=== PATIENT | male | born 1970 | race Caucasian/White ===

== ENCOUNTER 2018-09-17 21:57 | Emergency (ER) | payer BC, OTHER ==
[~2018-09-17] VITALS: Ht 185.4 cm; Wt 124.7 kg
[~2018-09-17 21:57] MED LIST: LISINOPRIL10 MG PO
[2018-09-17] MEDS ORDERED: ORPHENADRINE CITRATE 30 MG/ML VIAL IM ONE (22:15)
[2018-09-17] MEDS ORDERED: KETOROLAC TROMETHAMINE 60 MG/2 ML VIAL IM ONE (22:15)
[2018-09-17] MEDS ORDERED: DIAZEPAM 5 MG TAB PO ONE (22:15)
--- NOTE | 2018-09-17 22:29 | NUR ---
KATHY NAIK CAME FOR PT FOR DIAGNOSTICS, PT STATES HE WANTS TO WAIT A FEW MINUTES FOR MEDICATIONS TO "KICK IN" BEFORE GOING. MD WARD
--- NOTE | 2018-09-17 23:51 | Diagnostic Imaging Report ---
CHEST SINGLE (PORTABLE), 09/17/2018 10:12 PM Technique: CHEST SINGLE (PORTABLE) Comparison: 09/01/2014 Clinical history: Cough Findings: See Impression Impression: Significantly limited by portable lordotic technique and soft tissue attenuation. Recommend follow-up upright PA and lateral. Signed by: Dr Aleta Dugan MD on 09/17/2018 11:48 PM
--- NOTE | 2018-09-17 23:57 | Diagnostic Imaging Report ---
History: Back pain, patient states he coughed and heard pop in the back followed by severe back pain. Comparison studies: None Technique: Axial were obtained without IV contrast through the thoracic region. Coronal and sagittal images reconstructed from the axial data. Dose modulation, iterative reconstruction, and/or weight based adjustment of the mA/kV was utilized to reduce the radiation dose to as low as reasonably achievable. Intravenous contrast: None Findings: Alignment: Normal kyphosis. No scoliosis. Soft tissues: No abnormalities.. Paraspinal muscles: Unremarkable Spinal cord: Can not be evaluated. Vertebrae: Age indeterminate inferior endplate compression and anterior wedging deformity at level T8 with approximately 15% loss of vertebral body height. No fractures, infection or neoplasm. Degenerative changes: Multilevel Schmorl's node in mid and lower thoracic spine. No significant canal or foraminal stenosis. IMPRESSION: 1. Age indeterminate mild inferior endplate compression and anterior wedging deformity at level T8. 2. Multilevel Schmorl's node in mid and lower thoracic spine. 3. Ligament, spinal cord and or vascular abnormalities cannot be excluded on the basis of this examination. Signed by: Dr. Chrystal Handley M.D. on 09/17/2018 11:53 PM
--- NOTE | 2018-09-18 00:05 | Diagnostic Imaging Report ---
History: Back pain, patient states he coughed and heard pop in the back followed by severe back pain. Comparison studies: None Technique: Axial images were obtained through the lumbar spine from T12-S1. Coronal and sagittal images reconstructed from the axial data. Dose modulation, iterative reconstruction, and/or weight based adjustment of the mA/kV was utilized to reduce the radiation dose to as low as reasonably achievable. Intravenous contrast: None Findings: The usual 5 non-rib bearing lumbar vertebral bodies are present. Alignment: Normal lordosis. No scoliosis. Soft tissues: No abnormalities. Paraspinal muscles: Unremarkable. Sacroiliac joints: Mild bilateral degenerative changes with vacuum phenomenon Vertebrae: No fractures, infection or neoplasm. Degenerative changes: L1-L2: Mild degenerative disc disease and endplate sclerosis. No canal or foraminal stenosis. L2-L3: Disc bulge asymmetric to left without significant canal stenosis. Mild bilateral foraminal stenosis L3-L4: Disc bulge without canal stenosis. Mild left foraminal stenosis. L4-L5: Disc bulge without significant canal stenosis. Mild bilateral facet arthrosis. Mild bilateral foraminal stenosis. L5-S1: Mild degenerative disc disease with endplate sclerosis and vacuum phenomena and. Disc bulge without canal stenosis. Mild right and severe left facet arthrosis. Mild right and severe left foraminal stenosis. IMPRESSION: 1. No acute lumbar spine fracture or dislocation. 2. Lumbar spondylosis as detailed above without significant canal stenosis. Multilevel foraminal stenosis, particularly mild bilateral at L2-L3, L4-L5, mild left at L3-L4, mild right and severe left at L5-S1. 3. Ligament, spinal cord and or vascular abnormalities cannot be excluded on the basis of this examination. Signed by: Dr. Chrystal Handley M.D. on 09/18/2018 12:01 AM
--- NOTE | 2018-09-18 01:25 | NUR ---
DC'D HOME WITH FAMILY. PT OFFERED WHEELCHAIR, REFUSED, STATES "I'VE GOTTA WALK WHEN I GET HOME, SO I'M GONNA WALK OUTTA HERE." WALKED WITH PATIENT TO EXIT, TOLERATED AMBULATING WELL. AWAKE ALERT SKIN W/D RESP NONLAB. NAD NOTED.
== END 2018-09-18 01:26 | disposition home or self-care (01) ==
LOC: ER 21:57
DX: M54.6 Pain in thoracic spine (principal); S22.060A Wedge compression fracture of T7-T8 vertebra, initial encounter for closed fracture; M54.5 Low back pain; S39.012A Strain of muscle, fascia and tendon of lower back, initial encounter
CPT/HCPCS: 71045; 72128; 72131; 99284; J1885; J2360

== ENCOUNTER 2019-05-23 15:26 | Observation (INO) | payer OTHER ==
[~2019-05-23] VITALS: Ht 185.4 cm; Wt 127.0 kg
--- OUTSIDE RECORDS SUMMARY | 2019-05-23 16:11 | XMS REPORT ---
Author [facility] Address Unknown Phone Unavailable Care Team Providers Care Word Processing Operator Name Role Phone Renetta BOCANEGRA Unavailable Unavailable Problems This patient has no known problems. Allergies, Adverse Reactions, Alerts This patient has no known allergies or adverse reactions. Medications This patient has no known medications. Results Test Description Test Time Test Comments Text Results Atomic Results Result Comments CT LUMBAR SPINE WO 2018-09-17 23:54:00 [place] [address] Patient Name: YOLA LYNN MR #: [id number] : 1970 Age/Sex: 48/M Req #: [id number] Adm Physician: Ordered by: CARMEN BOCANEGRA MD Report #: [id number] Location: ER Room/Bed: Procedure: [id number] CT/CT LUMBAR SPINE WO Exam Date: 09/17/18 Exam Time: 2300 REPORT STATUS: Signed History: Back pain, patient states he coughed and heard pop in the back followed by severe back pain. Comparison studies: None Technique: Axial images were obtained through the lumbar spine from T12-S1. Coronal and sagittal images reconstructed from the axial data. Dose modulation, iterative reconstruction, and/or weight based adjustment of the mA/kV was utilized to reduce the radiation dose to as low as reasonably achievable. Intravenous contrast: None Findings: The usual 5 non-rib bearing lumbar vertebral bodies are present. Alignment: Normal lordosis. No scoliosis. Soft tissues: No abnormalities. Paraspinal muscles: Unremarkable. Sacroiliac joints: Mild bilateral degenerative changes with vacuum phenomenon Vertebrae: No fractures, infection or neoplasm. Degenerative changes: L1-L2: Mild degenerative disc disease and endplate sclerosis. No canal or foraminal stenosis. L2-L3: Disc bulge asymmetric to left without significant canal stenosis. Mild bilateral foraminal stenosis L3- L4: Disc bulge without canal stenosis. Mild left foraminal stenosis. L4-L5: Disc bulge without significant canal stenosis. Mild bilateral facet arthrosis. Mild bilateral foraminal stenosis. L5-S1: Mild degenerative disc disease with endplate sclerosis and vacuum phenomena and. Disc bulge without canal stenosis. Mild right and severe left facet arthrosis. Mild r ight and severe left foraminal stenosis. IMPRESSION: 1. No acute lumbar spine fracture or dislocation. 2. Lumbar spondylosis as detailed above without significant canal stenosis. Multilevel foraminal stenosis, particularly mild bilateral at L2-L3, L4-L5, mild left at L3-L4, mild right and severe left at L5-S1. 3. Ligament, spinal cord and or vascular abnormalities cannot be excluded on the basis of this examination. Signed by: Dr. Chrystal Handley M.D. on 09/18/2018 12:01 AM Dictated By: CHRYSTAL HANDLEY MD 47 Transcribed By: ROBERT on 09/18/182347 COPY TO: CARMEN BOCANEGRA MD [facility] SINGLE (PORTABLE) 2018-09-17 23:46:00 [place] [address] Patient Name: YOLA LYNN MR #: [id number] : 1970 Age/Sex: 48/M Req #: [id number] Adm Physician: Ordered by: CARMEN BOCANEGRA MD Report #: [id number] Location: ER Room/Bed: Procedure: [id number] DX/CHEST SINGLE (PORTABLE) Exam Date: 09/17/18 Exam Time: 2335 REPORT STATUS: Signed CHEST SINGLE (PORTABLE), 09/17/2018 10:12 PM [place] hnique: CHEST SINGLE (PORTABLE) Comparison: 09/01/2014 Clinical history: Cough Findings: See Impression Impression: Significantly limited by portable lordotic technique and soft tissue attenuation. Recommend follow- up upright PA and lateral. Signed by: Dr Andrew Dugan MD on 09/17/2018 11:48 PM Dictated By: ANDREW DUGAN MD 47 Transcribed By: ROBERT on 09/17/182347 COPY TO: CARMEN BOCANEGRA MD CT THORACIC SPINE WO 2018-09-17 23:42:00 [place] [address] Patient Name: YOLA LYNN MR #: [id number] : 1970 Age/Sex: 48/M Req #: [id number] Adm Physician: Ordered by: CARMEN BOCANEGRA MD Report #: [id number] Location: ER Room/Bed: Procedure: [id number] CT/CT THORACIC SPINE WO Exam Date: 09/17/18 Exam Time: 2300 REPORT STATUS: Signed History: Back pain, patient states he coughed and heard pop in the back followed by severe back pain. Comparison studies: None Technique: Axial were obtained without IV contrast through the thoracic region. Coronal and sagittal images reconstructed from the axial data. Dose modulation, iterative reconstruction, and/or weight based adjustment of the mA/kV was utilized to reduce the radiation dose to as low as reasonably achievable. Intravenous contrast: None Findings: Alignment: Normal kyphosis. No scoliosis. Soft tissues: No abnormalities.. Paraspinal muscles: Unremarkable Spinal cord: Can not be evaluated. Vertebrae: Age indeterminate inferior endplate compression and anterior wedging deformity at level T8 with approximately 15% loss of vertebral body height. No fractures, infection or neoplasm. Degenerative changes: Multilevel Schmorl's node in mid and lower thoracic spine. No significant canal or foraminal stenosis. IMPRESSION: 1. Age indeterminate mild inferior endplate compression and anterior wedging deformity at level T8. 2. Multilevel Schmorl's node in mid and lower thoracic spine. 3. Ligament, spinal cord and or vascular abnormalities cannot be excluded on the basis of this examination. Signed by: Dr. Chrystal Handley M.D. on 09/17/2018 11:53 PM Dictated By: CHRYSTAL HANDLEY MD 2 353 Transcribed By: ROBERT on 09/17/18 [id number] COPY TO: CARMEN BOCANEGRA MD
[2019-05-23] MEDS ORDERED: DEXTROSE 50% SYRINGE 50 ML IV PRN (16:30)
[2019-05-23] MEDS ORDERED: NICOTINE 21 MG/EA PATCH TOP SCH (16:45)
[2019-05-23 16:57] VITALS: BP 131/78
[2019-05-23 17:02] VITALS: BP 131/78
--- NOTE | 2019-05-23 17:08 | NUR ---
patient received awake and alert. see admit assess. Dr Galvan to deride left index finger in am. vitals stable with no distress.
[2019-05-23 17:24] LABS: BASOPHILS # (AUTO) 0.1 (0.0-0.1); BASOPHILS % 0.8 % (0.0-1.0); EOSINOPHILS # (AUTO) 1.5 (0.0-0.4); EOSINOPHILS % 13.8 % (0.0-6.0); HEMATOCRIT 38.6 % (38.2-49.6); HEMOGLOBIN 12.7 g/dL (14.0-18.0); LYMPHOCYTES # (AUTO) 1.9 (1.0-3.2); LYMPHOCYTES % 16.8 % (18.0-39.1); MEAN CORPUSCULAR HGB CONC 32.9 g/dL (31-35); MEAN CORPUSCULAR VOLUME 94.1 fL (81-99); MONOCYTES # (AUTO) 0.8 (0.2-0.8); NEUTROPHILS # (AUTO) 6.8 (2.1-6.9); NEUTROPHILS % 61.3 % (38.7-80.0); PLATELET COUNT 216 x10e3/uL (140-360); RED CELL DISTRIBUTION WIDTH 12.6 % (11.7-14.4)
[2019-05-23 17:41] LABS: ALANINE AMINOTRANSFERASE 32 IU/L (0-55); ALBUMIN 3.4 g/dL (3.5-5.0); ALBUMIN/GLOBULIN RATIO 0.9 (0.8-2.0); ALKALINE PHOSPHATASE 64 IU/L (40-150); ANION GAP 12.1 mmol/L (8-16); BLOOD UREA NITROGEN 14 mg/dL (7-26); BUN/CREATININE RATIO 13 (6-25); CALCIUM 9.2 mg/dL (8.4-10.2); CARBON DIOXIDE 27 mmol/L (22-29); CHLORIDE 100 mmol/L (98-107); CREATININE, SERUM 1.04 mg/dL (0.72-1.25); EST GLOMERULAR FILTRATION RATE > 60 ML/MIN (60-); GLUCOSE 153 mg/dL (74-118); POTASSIUM 4.1 mmol/L (3.5-5.1); SODIUM 135 mmol/L (136-145)
[2019-05-23] MEDS: METFORMIN HCL 500 MG TAB PO SCH (18:12)
[2019-05-23] MEDS: CLINDAMYCIN 600MG / 50ML 50 ML IV SCH (18:12)
--- NOTE | 2019-05-23 18:22 | History and Physical ---
CHIEF COMPLAINT: "My finger wound is worsening." HISTORY OF PRESENT ILLNESS: This is a 49-year-old white man, who was diagnosed 4 weeks ago with an ulcerated wound on the palmar aspect of his left index finger. The patient was prescribed a 14-day course of oral levofloxacin, which he fully completed. The patient's over last week, the palmar aspect of his left index finger tip has become black. The patient denies fever and chills. 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 The patient states he does keep the wound covered though. The patient states he initially suffered sustained this wound on March 23, 2019, when he injured his left index finger at work with a tungsten probe. REVIEW OF SYSTEMS: GENERAL: No fever or chills. Weight is stable. HEENT: No headaches. No vision changes. CARDIOVASCULAR: No chest pain. No shortness of breath. GI: Nausea, vomiting, or constipation. : No dysuria or hematuria. NEUROMUSCULAR: No limb weakness, but he does have numbness at times in his hands and feet. He states at times he has coldness in the tips of his fingers on his both hands. PAST MEDICAL HISTORY: 1. Type 2 diabetes with neuropathy. 2. Extreme obesity, BMI 40. 3. Hypertensive disease. 4. Sleep apnea. 5. Stage I chronic kidney disease. SURGICAL HISTORY: None. ALLERGIES: NO KNOWN DRUG ALLERGIES. FAMILY HISTORY: Mother has rheumatoid arthritis and father has Parkinson disease. Both parents have hypertension, type 2 diabetes. 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 He currently lives with his girlfriend. The patient smokes tobacco, but denies any alcohol or illicit drug use. HOME MEDICATIONS: 1. Metformin 1000 mg daily. 2. Tizanidine 4 mg once a day as needed for back spasms. 3. Vitamin D3 2000 units daily. 4. Vitamin B12 1000 mcg daily. 5. Lisinopril 20 mg daily. 6. Ibuprofen 200 mg b.i.d. p.r.n. PHYSICAL EXAMINATION: GENERAL: He is awake, alert, and fully oriented. He is very anxious, but consolable. His girlfriend is at bedside. VITAL SIGNS: Blood pressure is 158/90, pulse 88, respiratory rate 16, oxygen saturation is 90% on room air, temperature 98.2, height 6 feet 1 inch, weight 301 pounds, BMI 40. Nonfasting glucose 117 mg/dL. INTEGUMENT: Skin is warm and dry. No pallor, jaundice, or diaphoresis. HEENT: Anicteric sclerae. Moist mucous membranes. NECK: Supple. CARDIOVASCULAR: Distant heart sounds. Tachycardic rate and rhythm. There is S4 gallop. LUNGS: No rales, no rhonchi. ABDOMEN: Obese, benign. EXTREMITIES: The patient has a black eschar covered wound on the palmar aspect of his left index finger tip. There is some surrounding erythema, but no drainage. No streaking is appreciated superiorly from this left index finger wound. NEUROLOGIC: He has decreased pinprick sensation to plantar aspects of feet. DIAGNOSES: 1. Dry gangrenous wound (distal aspect of left trevino index finger) with surrounding cellulitis. 2. Buerger disease (Thromboangiitis obliterans). 3. Type 2 diabetes with neuropathy. 4. Dyslipidemia. 5. Hypertensive heart disease. 6. Extreme obesity, BMI 40. 7. Tobacco abuse. PLAN: 1. Highly recommend tobacco cessation. 2. Inform the patient that he could be experiencing Buerger disease since he is a tobacco smoker and may have peripheral artery disease in the digits of the hands. 3. We will order Humalog insulin sliding scale. 4. Start intravenous ceftriaxone and clindamycin for the patient's dry gangrenous finger wound with surrounding cellulitis. 5. Consult a hand surgeon since this wound needs to be debrided. 6. Continue oral metformin for glucose control. 7. Arterial doppler ultrasound of left upper extremity. 8. Antiplatelet therapy. I spent 50 minutes in the care of the patient. MD DUSTY Alva/CLOVIS /[id number] MTDD
[2019-05-23] MEDS: INSULIN LISPRO 100 UNIT/1 ML 3ML VIAL SQ SCH ×2 (18:25→20:25)
[2019-05-23] MEDS ORDERED: LIDOCAINE HCL 2% LOCAL INJ 5 ML SDV VIAL INJ ONE (19:19)
[2019-05-23] MEDS ORDERED: PROPOFOL IV EMULSION 10 MG/ML 20 ML VIAL ONE (19:19)
[2019-05-23 19:33] VITALS: BP 131/78
[2019-05-23 19:37] LABS: ANISOCYTOSIS SLIGHT; EOSINOPHILS % (MANUAL) 12 % (0-7); LYMPHOCYTES % (MANUAL) 14 % (19-48); MONOCYTES % (MANUAL) 6 % (3.4-9.0); NEUTROPHILS % (MANUAL) 65 % (40-74); PLATELET ESTIMATE ADEQUATE; PLATELET MORPHOLOGY COMMENT NORMAL; RBC MORPHOLOGY COMMENT NORMAL
--- NOTE | 2019-05-23 19:40 | NUR ---
Received report from previous nurse. Call light within reach. Patient in bed. No pain or distress.
--- NOTE | 2019-05-23 19:58 | Diagnostic Imaging Report ---
EXAMINATION: CHEST 2 VIEWS INDICATION: Hypertension ^HTN ^[id number] ^192 COMPARISON: September 17, 2018 FINDINGS: TUBES and LINES: None. LUNGS: Lungs are well inflated. Lungs are clear. There is no evidence of pneumonia or pulmonary edema. PLEURA: No pleural effusion or pneumothorax. HEART AND MEDIASTINUM: The cardiomediastinal silhouette is unremarkable. BONES AND SOFT TISSUES: No acute osseous lesion. Soft tissues are unremarkable. UPPER ABDOMEN: No free air under the diaphragm. IMPRESSION: No acute thoracic abnormality. Signed by: Dr. Nitish Spain M.D. on 05/23/2019 7:39 PM
[2019-05-23] MEDS: CEFTRIAXONE SOD 2 GM/NS 100 ML 100 ML IV SCH (20:05)
[2019-05-23 20:11] VITALS: BP 129/64
[2019-05-23] MEDS ORDERED: SODIUM CHLORIDE 0.9% 250ML 250 ML ONE (20:12)
[2019-05-23 20:49] VITALS: BP 129/64
[2019-05-24 00:04] VITALS: BP 130/73
--- NOTE | 2019-05-24 00:10 | NUR ---
Patient complained of 5 out of 10 pain in his head. Called Dr. Chowdary office and waiting for call back.
[2019-05-24] MEDS: CLINDAMYCIN 600MG / 50ML 50 ML IV SCH ×2 (00:15→05:58)
--- NOTE | 2019-05-24 01:09 | Consultation ---
DATE OF CONSULTATION: 05/23/2019 CONSULT REQUESTED BY: Maurice Chowdary MD. Consult requested to Clive Hubbard MD, Hand Surgery. CHIEF COMPLAINT: Left index finger infection. HISTORY OF PRESENT ILLNESS: The patient is a 49-year-old right-hand dominant male. He was newly diagnosed with adult onset diabetes mellitus. The patient states that approximately one month ago, he sustained an injury and a laceration to the tip of the left index finger. He states that despite using soap and water and bacitracin ointment that the wound has not healed and in fact has gotten significantly worse. He was seen by his PCP today, who noticed that there appears to be a significant amount of devitalized tissue and the presence of soft tissue infection. He was then admitted as a direct admit and consultation is now requested for optimal evaluation and management. PAST MEDICAL HISTORY: Notable for recently diagnosed adult onset diabetes mellitus. PAST SOCIAL HISTORY: Noncontributory. He is a long-time smoker. PHYSICAL EXAMINATION: VITAL SIGNS: He is afebrile. His vital signs were stable. On pertinent physical exam, the left index finger exhibits a full thickness wound extending from the DIP joint flexion crease to the tip of finger. There is devitalized tissue involving the volar aspect of the soft tissues. The middle phalanx is erythematous and blanches consistent with soft tissue cellulitis. There is no pain over the flexor tendon sheath and there is no pain with passive range of motion that would indicate a tenosynovitis. LABORATORY DATA: The white blood cell count is elevated to 12.4. IMPRESSION: Left index finger cellulitis and devitalized tissue. PLAN: The patient will be taken to the OR in the morning. Sharp excisional debridement of all of the devitalized tissues will be performed and that he will be returned to his hospital room for further care and treatment. Thank you for allowing me to participate in the care your patient. Clive Hubbard MD ER/MODL /[id number]
--- NOTE | 2019-05-24 02:30 | NUR ---
Patient still complaining of headache and called Dr. Chowdary office again and still waiting for a call back
[2019-05-24 04:33] VITALS: BP 134/84
[2019-05-24] MEDS ORDERED: MUPIROCIN 2% OINT 22 GM TUBE ONE (06:06)
[2019-05-24] MEDS ORDERED: BACITRACIN 50,000 UNIT VIAL ONE (06:07)
[2019-05-24] MEDS ORDERED: BUPIVACAINE HCL 0.5% INJ 30 ML VIAL INJ ONE (06:07)
--- NOTE | 2019-05-24 06:18 | NUR ---
Dr. Chowdary called back and told him that the patient would like something for their headache. Dr. Chowdary ordered Tylenol 650 mg, q4h prn with sips of water.
[2019-05-24] MEDS: ACETAMINOPHEN 325 MG TAB PO PRN ×2 (06:42→10:39)
[2019-05-24 07:25] VITALS: BP 139/72
--- NOTE | 2019-05-24 07:25 | NUR ---
Gave report to oncoming nurse. Patient in bed. Call light within reach.
[2019-05-24] MEDS: INSULIN LISPRO 100 UNIT/1 ML 3ML VIAL SQ SCH ×2 (07:30→11:30)
[2019-05-24] MEDS: METFORMIN HCL 500 MG TAB PO SCH (08:00)
[2019-05-24 08:32] VITALS: BP 139/72
[2019-05-24] MEDS ORDERED: LIDOCAINE HCL 1% LOCAL INJ 20 ML VIAL ONE (08:33)
--- NOTE | 2019-05-24 08:34 | NUR ---
patient off the unit for procedure, Stable, alert with no distress, 9 am antibiotic sent with patient. Dr Chowdary had rounds
[2019-05-24] MEDS ORDERED: LISINOPRIL 20 MG TAB PO SCH (09:00)
[2019-05-24] MEDS: CEFTRIAXONE SOD 2 GM/NS 100 ML 100 ML IV SCH (09:00)
[2019-05-24 10:19] VITALS: BP 125/53
--- NOTE | 2019-05-24 11:16 | NUR ---
patient c/o pain in his left finger. patient given oral tylenol. No other pain meds ordered. Call placed to get new order
[2019-05-24 11:28] VITALS: BP 191/101
[2019-05-24] MEDS ORDERED: KETOROLAC TROMETHAMINE 30 MG/ML VIAL IV STA (11:40)
--- NOTE | 2019-05-24 13:10 | NUR ---
patient discharged home, left index incision site is dressing intact, not in any distress, patient got lunch tray, refused any insulin, IV canula removed with tip intact, no ss of infiltration. , transported via wheelchair to [facility]
[2019-05-24] MEDS ORDERED: NICOTINE PATCH1 EAC2 TP (13:22)
[2019-05-24] MEDS ORDERED: CLINDAMYCIN HC150 MG PO (13:22)
[2019-05-24] MEDS ORDERED: TYLENOL WITH C1 EACH PO (13:23)
[2019-05-24] MEDS ORDERED: ASPIRIN81 MG PO (13:23)
--- NOTE | 2019-05-24 14:14 | NUR ---
Dictated DC summary: [id number]
--- NOTE | 2019-05-24 15:09 | Discharge Summary ---
ADMITTING DIAGNOSES: 1. Dry gangrenous left index finger wound with surrounding cellulitis. 2. Buerger disease (thromboangiitis obliterans). 3. Type 2 diabetes mellitus with neuropathy. 4. Dyslipidemia. 5. Hypertensive heart disease. 6. Tobacco abuse. DISCHARGE DIAGNOSES: 1. Status post left index finger wound debridement. 2. Buerger disease (thromboangiitis obliterans). 3. Peripheral arterial disease, likely. 4. Hypertensive heart disease. 5. Type 2 diabetes mellitus with neuropathy. 6. Tobacco abuse. HOSPITAL COURSE: This is a 49-year-old white male, who initially admitted to [facility] with a diagnosis of a dry gangrenous wound on the palmar aspect of his left index finger with surrounding cellulitis. He was also diagnosed with Buerger disease (thromboangiitis obliterans). The patient also has type 2 diabetes mellitus with neuropathy as well as hypertensive heart disease. The patient also smokes tobacco heavily. During this hospitalization, the patient was counseled on absolute tobacco cessation. The patient was started on nicotine patch. The patient was also started on intravenous ceftriaxone and clindamycin for his gangrenous left index finger wound with surrounding cellulitis. The patient was seen by hand surgeon during this hospitalization, Dr. Clive Hubbard, who performed wound debridement of the left index finger in the operating room. The patient tolerated the procedure well. During this hospital stay, the patient was diagnosed with Buerger disease (thromboangiitis obliterans). The patient's condition on discharge is stable. DISCHARGE MEDICATIONS: 1. Clindamycin 300 mg daily for 10 days. 2. Tylenol No. 3 one pill every 6 hours p.r.n. pain, total 20 prescribed with one refill. 3. Nicotine patch 21 mg strength, one patch daily. 4. Lisinopril 20 mg daily. 5. Metformin 1000 mg b.i.d. 6. Tizanidine 4 mg once daily as needed for back spasms. 7. Vitamin D3 2000 units daily. 8. Vitamin B12 1000 mcg daily. 9. Aspirin 81 mg daily. FOLLOWUP INSTRUCTIONS: The patient was instructed to follow up with Dr. Hubbard, hand surgeon within a week and with myself, Dr. Chowdary, in two weeks. Maurice E Orahood, MD MEO/CLOVIS /[id number] MTDD
--- NOTE | 2019-05-24 16:59 | Operative Report ---
DATE OF PROCEDURE: 05/24/2019 SURGEON: Clive Hubbard MD PREOPERATIVE DIAGNOSIS: Gangrene, left index finger. POSTOPERATIVE DIAGNOSIS: Gangrene, left index finger. PROCEDURE: Sharp excisional debridement of left index finger. ANESTHESIA: IV sedation/local. HISTORY: The patient is a 49-year-old male, who was admitted last night, who has a history of Buerger's disease and new onset adult onset diabetes mellitus. He has a gangrene of the distal phalanx of the left index finger. Risks, benefits, and alternatives of treatment were discussed with the patient. He is prepared to undergo the procedure as outlined. DESCRIPTION OF PROCEDURE: The patient was marked preoperatively in the holding area, brought to the operating theater, and after the induction of adequate IV sedation, a digital block of 1% xylocaine plain was placed around the base of the left index finger. A total of 5 to 6 mL was used. A time-out was then performed. The finger was prepped and draped in a supine position and sharp excisional debridement of all the devitalized tissues was carried out until the wound bed was noted to have a good punctate bleeding and no further devitalized tissue. Bactroban ointment, Xeroform gauze, and a sterile dressing were applied. The patient was returned to recovery room in satisfactory condition and discharged with a postoperative instruction sheet as well as a followup appointment. Clive Hubbard MD ER/MODL /[id number]
[2019-05-24] MEDS ORDERED: FENTANYL CITRATE/PF 100MCG/2 ML INJ ONE (19:44)
[2019-05-24] MEDS ORDERED: MIDAZOLAM HCL 2 MG/2 ML VIAL ONE (19:44)
== END 2019-05-24 13:52 | disposition home or self-care (01) ==
LOC: IMCU 16:09
PROVIDERS: ADMIT Internal Medicine; ATTEND Internal Medicine
DX: I73.1 Thromboangiitis obliterans [Buerger's disease] (principal); E11.22 Type 2 diabetes mellitus with diabetic chronic kidney disease; E11.69 Type 2 diabetes mellitus with other specified complication; I13.10 Hypertensive heart and chronic kidney disease without heart failure, with stage 1 through stage 4 chronic kidney disease, or unspecified chronic kidney disease; M86.8X4 Other osteomyelitis, hand; N18.1 Chronic kidney disease, stage 1; Z79.4 Long term (current) use of insulin; G47.30 Sleep apnea, unspecified; E66.01 Morbid (severe) obesity due to excess calories; Z68.41 Body mass index [BMI] 40.0-44.9, adult; E11.40 Type 2 diabetes mellitus with diabetic neuropathy, unspecified; Z79.84 Long term (current) use of oral hypoglycemic drugs; E11.52 Type 2 diabetes mellitus with diabetic peripheral angiopathy with gangrene; F17.210 Nicotine dependence, cigarettes, uncomplicated; E78.5 Hyperlipidemia, unspecified; L03.012 Cellulitis of left finger
CPT/HCPCS: 11042; 36415 ×2; 71046; 80053; 82948 ×2; 85025; 93005; G0378 ×2; J0696; J1885; J2001 ×2; J2250; J2704; J3010; J7050

== ENCOUNTER 2019-08-13 13:57 | Inpatient (IN) | payer OTHER ==
[~2019-08-13] VITALS: Ht 185.4 cm; Wt 127.0 kg
[~2019-08-13 13:57] MED LIST changes: +ASPIRIN81 MG PO; +CLINDAMYCIN HC150 MG PO; +NICOTINE PATCH1 EAC2 TP; +TYLENOL WITH C1 EACH PO
[2019-08-13] MEDS ORDERED: ONDANSETRON HCL INJ 2MG/ML 2ML 2 MG/ML VIAL IV ONE (14:06)
[2019-08-13] MEDS ORDERED: SODIUM CHLORIDE 0.9% 1000ML 1,000 ML IV STA (14:06)
[2019-08-13] MEDS ORDERED: MORPHINE SULFATE INJ 4 MG/ML INJ 1ML IV PRN (14:15)
[2019-08-13] MEDS ORDERED: MORPHINE SULFATE 2 MG/ML SYR 1ML IV SCH (14:15)
[2019-08-13] MEDS ORDERED: MORPHINE SULFATE INJ 4 MG/ML INJ 1ML IV SCH (14:30)
[2019-08-13] MEDS ORDERED: SODIUM CHLORIDE 0.9% 1000ML 1,000 ML IV SCH (15:03)
[2019-08-13] MEDS ORDERED: MORPHINE SULFATE 2 MG/ML SYR 1ML IV PRN (15:15)
[2019-08-13] MEDS ORDERED: ONDANSETRON HCL INJ 2MG/ML 2ML 2 MG/ML VIAL IV PRN (15:15)
--- NOTE | 2019-08-13 15:19 | Diagnostic Imaging Report ---
Chest, single frontal view History: Fall, pain. Comparison: 05/23/2019. Discussion: The heart is within normal limits of size. The mediastinal and hilar contours are unremarkable. There is no focal consolidation, sizable pleural effusion, or pneumothorax. IMPRESSION: No radiographic evidence of acute cardiopulmonary process. Signed by: Wilberto Clarke MD on 08/13/2019 3:15 PM
--- NOTE | 2019-08-13 15:37 | Diagnostic Imaging Report ---
Right hand, 3 views Clinical indication: Necrotic fingers Comparison: None Findings: AP, lateral, and oblique radiographs of the right hand were obtained. There is no radiographic evidence of acute fracture or dislocation. There is osseous resorption of the distal tuft of the second distal phalanx. No other osseous erosions are identified. The bone mineralization is normal. No radiopaque foreign bodies are identified. No subcutaneous soft tissue gas is seen. Impression: Osseous resorption of the distal tuft of the second distal phalanx. No evidence of acute fracture or dislocation. Signed by: Wilberto Clarke MD on 08/13/2019 3:34 PM
--- NOTE | 2019-08-13 15:41 | Diagnostic Imaging Report ---
Left hand, 3 views Clinical indication: Caught fingers Comparison: None Findings: AP, lateral, and oblique views of the left hand were obtained. There is no radiographic evidence of acute fracture or dislocation. There is osseous resorption of the distal tuft of the left second distal phalanx. No other osseous erosions or bony resorption is identified. Mild soft tissue swelling is present about the second proximal interphalangeal joint. No radiopaque foreign bodies or subcutaneous soft tissue gas identified. Impression: Osseous resorption of the distal tuft of the left second distal phalanx. Mild soft tissue swelling about the second proximal interphalangeal joint. No acute fractures or dislocation. Signed by: Wilberto Clarke MD on 08/13/2019 3:38 PM
[2019-08-13 15:47] LABS: BASOPHILS # (AUTO) 0.1 (0.0-0.1); EOSINOPHILS # (AUTO) 1.7 (0.0-0.4); EOSINOPHILS % 11.7 % (0.0-6.0); HEMATOCRIT 44.8 % (38.2-49.6); HEMOGLOBIN 14.7 g/dL (14.0-18.0); LYMPHOCYTES # (AUTO) 2.4 (1.0-3.2); LYMPHOCYTES % 16.5 % (18.0-39.1); MEAN CORPUSCULAR HGB CONC 32.8 g/dL (31-35); MEAN CORPUSCULAR VOLUME 94.5 fL (81-99); MONOCYTES # (AUTO) 1.3 (0.2-0.8); MONOCYTES % 8.8 % (4.4-11.3); NEUTROPHILS % 61.7 % (38.7-80.0); PLATELET COUNT 297 x10e3/uL (140-360); RED BLOOD COUNT 4.74 x10e6/uL (4.3-5.7); RED CELL DISTRIBUTION WIDTH 12.4 % (11.7-14.4)
[2019-08-13 15:53] LABS: BILIRUBIN,URINE 1+ (NEGATIVE); CLARITY,URINE SL CLOUDY (CLEAR); COLOR,URINE STRAW (YELLOW); KETONES,URINE NEGATIVE (NEGATIVE); LEUKOCYTE ESTERASE ,URINE NEGATIVE (NEGATIVE); NITRITE,URINE NEGATIVE (NEGATIVE); PROTEIN,URINE DIPSTICK TRACE (NEGATIVE); URINE UROBILINOGEN 0.2 mg/dL (0.2 - 1)
[2019-08-13 16:00] LABS: INR 0.91; PROTHROMBIN TIME 12.7 seconds (11.9-14.5)
[2019-08-13 16:01] LABS: PARTIAL THROMBOPLASTIN TIME 31.4 seconds (23.8-35.5)
[2019-08-13 16:06] LABS: BACTERIA,URINE MODERATE /HPF; EPITHELIAL CELLS,URINE FEW /LPF; RBC,URINE 0-5 /HPF (0-5)
[2019-08-13 16:13] LABS: ALANINE AMINOTRANSFERASE 28 IU/L (0-55); ALBUMIN 3.7 g/dL (3.5-5.0); ALBUMIN/GLOBULIN RATIO 0.8 (0.8-2.0); ALKALINE PHOSPHATASE 83 IU/L (40-150); ANION GAP 14.2 mmol/L (8-16); BLOOD UREA NITROGEN 15 mg/dL (7-26); BUN/CREATININE RATIO 15 (6-25); CALCIUM 9.9 mg/dL (8.4-10.2); CARBON DIOXIDE 28 mmol/L (22-29); CHLORIDE 98 mmol/L (98-107); CREATINE KINASE 151 IU/L (30-200); CREATININE, SERUM 0.98 mg/dL (0.72-1.25); EST GLOMERULAR FILTRATION RATE > 60 ML/MIN (60-); GLUCOSE 98 mg/dL (74-118); POTASSIUM 4.2 mmol/L (3.5-5.1); SODIUM 136 mmol/L (136-145)
--- NOTE | 2019-08-13 17:40 | NUR ---
PT CANT SIT IN MRI PER PT. PT BACK TO ER TO HOLD
--- NOTE | 2019-08-13 18:08 | History and Physical ---
CHIEF COMPLAINT: "My finger infection is worsening." HISTORY OF PRESENT ILLNESS: This is a 49-year-old white man, who presents with worsening infection of his left index finger. The patient has had chronic wound on his left index finger since April of 2019. The patient was actually admitted to [facility] in May of 2019, with a diagnosis of a dry gangrenous wound on the distal aspect of his left index finger. During the hospitalization, he was diagnosed with Buerger disease, otherwise known as thromboangiitis obliterans. The patient was seen by Dr. Clive Hubbard during the hospitalization and underwent sharp excisional debridement of the left index finger for this gangrenous infection. During the hospital stay, the patient received intravenous antibiotics and was sent home on oral clindamycin. Tobacco cessation was highly recommended. The patient states he did not quit smoking tobacco. The patient states for past 4 or 5 days, the wound on distal aspect of his left index finger has become black and now he has redness and pain in the base of his left index finger as well as hand. The patient states he does feel ill. The patient was told by the hand surgeon that he will likely require amputation. The patient states he is under considerable amount of stress because his 45-year-old sister recently of pancreatic cancer on July 26, 2019. On this admission, the patient was found to have white blood cell count of 14,500 with 61% segmenters. The patient's BUN and creatinine are 15 and 0.98 respectively. Serum glucose was 98 mg/dL. Urinalysis also revealed slightly cloudy straw colored urine with moderate amount of bacteria. The patient does states he does have urinary frequency, but he suffers from diabetes mellitus. The patient was admitted for further evaluation and treatment. REVIEW OF SYSTEMS: GENERAL: The patient states he has lost at least 10 pounds over the last month. He states he has had fever and chills since yesterday. HEENT: No headaches. No visual changes. CARDIOVASCULAR/RESPIRATORY: No chest pain. No shortness of breath. No cough. GI: No nausea, vomiting, diarrhea, or constipation. : He does urinate frequently. NEUROMUSCULAR: Complains of pain in his left index finger as well as the base of his left index finger/hand. ALLERGIES: NO KNOWN DRUG ALLERGIES. MEDICATIONS: 1. Tylenol with codeine 1 p.o. every 6 hours p.r.n. pain. 2. Aspirin 81 mg daily. 3. Lisinopril 40 mg daily. 4. Metformin 1000 mg b.i.d. 5. Vitamin D3 2000 units daily. 6. Vitamin B12 1000 mcg daily. PAST MEDICAL HISTORY: 1. Buerger disease (thromboangiitis obliterans). 2. Peripheral artery disease. 3. Hypertensive heart disease. 4. Type 2 diabetes mellitus with neuropathy. 5. Obesity, BMI 37. 6. Tobacco abuse. 7. Sleep apnea. PAST SURGICAL HISTORY: None. FAMILY HISTORY: Mother has rheumatoid arthritis and father has Parkinson disease. Both parents have hypertension and type 2 diabetes. His 45-year-old sister recently of pancreatic cancer. 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 He currently lives alone. He does smoke tobacco. He denies any history of alcohol or illicit drug use. PHYSICAL EXAMINATION: GENERAL: He is awake, alert, and fully oriented. He is anxious and somewhat emotional, but is consolable. VITAL SIGNS: His height is 6 feet 1 inch, weight is 280 pounds, BMI 37, blood pressure 162/100, pulse is 88, respiratory rate 16, temperature 97.8, and oxygen saturation is 96% on room air. INTEGUMENT: Skin is warm and dry. No pallor, jaundice, or diaphoresis. HEENT: Anicteric sclerae. Moist mucous membranes. NECK: Supple. CARDIOVASCULAR: Distant heart sounds. Tachycardic rate, regular. The patient has S4 gallop. LUNGS: No rales. No rhonchi. No wheezes. ABDOMEN: Obese, yet benign. EXTREMITIES: The patient has a dry gangrenous wound on the distal aspect of his left index finger. The patient has erythema and swelling on the base of his left index finger and has erythema also involving the left hand. NEUROLOGIC: No gross focal deficits appreciated, but he does have diabetic neuropathy. DIAGNOSES: 1. Left index finger dry gangrenous wound with osteomyelitis and surrounding cellulitis. 2. Peripheral artery disease. 3. Thromboangiitis obliterans (Buerger disease). 4. Tobacco abuse. 5. Hypertensive heart disease. 6. Type 2 diabetes mellitus with neuropathy. PLAN: 1. Highly recommend tobacco cessation. 2. Consult hand specialist. 3. The patient will undergo amputation of the left index finger tomorrow tentatively. 4. Start intravenous antibiotics. 5. May consider ordering MRI of the left hand to assess extent osteomyelitis. 6. After surgery, the patient most likely will be started on aspirin, sildenafil, and nifedipine for his peripheral artery disease/thromboangitis obliterans. I spent an hour in the care of this patient. MD DUSTY Alva/CLOVIS /[id number] MTDD
[2019-08-13] MEDS ORDERED: SODIUM CHLORIDE 0.9% 1000ML 1,000 ML ONE (19:31)
[2019-08-13] MEDS: PIPER-TAZ 3.375 GM 50 ML IV SCH (19:48)
[2019-08-13] MEDS ORDERED: LIDOCAINE HCL 2% LOCAL INJ 5 ML SDV VIAL INJ ONE (20:02)
[2019-08-13] MEDS ORDERED: SEVOFLURANE INHAL SOLN 250 ML PEN BTL ONE (20:02)
[2019-08-13] MEDS ORDERED: PROPOFOL IV EMULSION 10 MG/ML 20 ML VIAL ONE (20:02)
[2019-08-13] MEDS ORDERED: ONDANSETRON HCL INJ 2MG/ML 2ML 2 MG/ML VIAL ONE (20:02)
[2019-08-13] MEDS: MORPHINE SULFATE INJ 4 MG/ML INJ 1ML IV PRN (20:23)
[2019-08-13] MEDS ORDERED: DEXTROSE 50% SYRINGE 50 ML IV PRN (20:45)
[2019-08-13] MEDS: INSULIN REGULAR, HUMAN 100 UNIT/1 ML 3ML VIAL SQ SCH (21:42)
--- NOTE | 2019-08-13 23:33 | NUR ---
PT PLACED ON HOSPITAL BED.
[2019-08-14] MEDS: MORPHINE SULFATE INJ 4 MG/ML INJ 1ML IV PRN ×5 (01:01→21:15)
[2019-08-14] MEDS: ACETAMINOPHEN/CODEINE 300MG - 30MG TAB PO PRN ×4 (02:34→23:34)
[2019-08-14] MEDS: PIPER-TAZ 3.375 GM 50 ML IV SCH ×5 (02:34→23:35)
[2019-08-14 06:02] LABS: BASOPHILS # (AUTO) 0.1 (0.0-0.1); BASOPHILS % 0.8 % (0.0-1.0); EOSINOPHILS # (AUTO) 1.7 (0.0-0.4); EOSINOPHILS % 14.4 % (0.0-6.0); HEMATOCRIT 40.2 % (38.2-49.6); HEMOGLOBIN 13.1 g/dL (14.0-18.0); LYMPHOCYTES # (AUTO) 2.2 (1.0-3.2); MEAN CORPUSCULAR HGB CONC 32.6 g/dL (31-35); MONOCYTES # (AUTO) 1.1 (0.2-0.8); MONOCYTES % 9.4 % (4.4-11.3); NEUTROPHILS # (AUTO) 6.8 (2.1-6.9); NEUTROPHILS % 57.1 % (38.7-80.0); PLATELET COUNT 232 x10e3/uL (140-360); RED BLOOD COUNT 4.23 x10e6/uL (4.3-5.7); RED CELL DISTRIBUTION WIDTH 12.6 % (11.7-14.4)
[2019-08-14 06:24] LABS: ALANINE AMINOTRANSFERASE 25 IU/L (0-55); ALBUMIN 3.1 g/dL (3.5-5.0); ALBUMIN/GLOBULIN RATIO 0.8 (0.8-2.0); ALKALINE PHOSPHATASE 70 IU/L (40-150); ANION GAP 12.1 mmol/L (8-16); BLOOD UREA NITROGEN 14 mg/dL (7-26); BUN/CREATININE RATIO 15 (6-25); CALCIUM 9.1 mg/dL (8.4-10.2); CARBON DIOXIDE 26 mmol/L (22-29); CHLORIDE 104 mmol/L (98-107); CREATININE, SERUM 0.92 mg/dL (0.72-1.25); EST GLOMERULAR FILTRATION RATE > 60 ML/MIN (60-); GLUCOSE 148 mg/dL (74-118); POTASSIUM 4.1 mmol/L (3.5-5.1); SODIUM 138 mmol/L (136-145)
[2019-08-14 06:40] LABS: CREATINE KINASE MB 1.5 ng/mL (0-5.0)
[2019-08-14] MEDS: INSULIN REGULAR, HUMAN 100 UNIT/1 ML 3ML VIAL SQ SCH ×4 (07:15→20:19)
[2019-08-14 08:04] LABS: INR 0.92; PROTHROMBIN TIME 12.8 seconds (11.9-14.5)
[2019-08-14 08:05] LABS: PARTIAL THROMBOPLASTIN TIME 31.5 seconds (23.8-35.5)
[2019-08-14] MEDS ORDERED: MUPIROCIN 2% OINT 22 GM TUBE ONE (08:17)
[2019-08-14] MEDS ORDERED: BUPIVACAINE HCL 0.5% INJ 30 ML VIAL INJ ONE (08:17)
[2019-08-14] MEDS ORDERED: LISINOPRIL 20 MG TAB PO SCH (09:00)
[2019-08-14] MEDS ORDERED: LISINOPRIL 10 MG TAB PO SCH (09:00)
--- NOTE | 2019-08-14 11:20 | NUR ---
PT RECEIVED FROM PACU. AAOX4. EDUCATED PT ABOUT FALL PRECAUTIONS. CALL LIGHT WITH IN EASY REACH. INSTRUCTED PT TO USE CALL LIGHT FOR ALL THE NEEDS. PT VERBALIZED UNDERSTANDING. BED IS LOW AND LOCKED. SIDE RAILS X2. PT DENIES NEEDS AT THIS TIME.
[2019-08-14 11:34] VITALS: BP 164/90
--- NOTE | 2019-08-14 11:45 | NUR ---
PAGED DR. TAPIA TO CONFIRM THE INSULIN DOSE. OKAY TO GIVE INSULIN PER THE
[2019-08-14 12:00] VITALS: BP 164/90
[2019-08-14] MEDS ORDERED: SODIUM CHLORIDE 0.9% 250ML 250 ML ONE (12:19)
[2019-08-14] MEDS ORDERED: MIDAZOLAM HCL 2 MG/2 ML VIAL ONE (13:08)
[2019-08-14] MEDS ORDERED: FENTANYL CITRATE/PF 100MCG/2 ML INJ ONE (13:08)
--- NOTE | 2019-08-14 14:55 | NUR ---
Visit made by the Spiritual Care Department Pastoral Visitor, Barbara Borden. PV provided pastoral presence, prayer, hospitality, and supportive listening. Pastoral Visitor informed pt/family of the scope of [facility] and availability. DRISS GRANGER [facility]oner Out Spiritual Care Department O: [phone] Pager: [phone] ([phone] number calling from)
[2019-08-14] MEDS ORDERED: METFORMIN HCL500 MG PO (15:33)
--- NOTE | 2019-08-14 16:15 | NUR ---
PT REFUSED INSULIN. BP IS HIGH. PAGED DR. TAPIA OFFICE AND LEFT MESSAGE. WAITING FOR CALL BACK.
[2019-08-14 16:16] VITALS: BP 163/79
--- NOTE | 2019-08-14 17:23 | Operative Report ---
DATE OF PROCEDURE: 08/14/2019 SURGEON: Clive Hubbard MD PREOPERATIVE DIAGNOSIS: Gangrene, left index finger. POSTOPERATIVE DIAGNOSIS: Gangrene, left index finger. PROCEDURE: Amputation of left index finger, middle phalanx level. ANESTHESIA: General. HISTORY: The patient is a 49-year-old right-hand dominant male, who carries a diagnosis of thromboangiitis obliterans. The patient is an active smoker despite being counseled to terminate his smoking activity. He has a wound on the left index finger, which has been present for several months. The patient has noticed progressive worsening and presented to the office yesterday with clear gangrenous changes of the left index finger at the distal phalanx level. The risks, benefits, and alternatives of treatment were discussed with the patient. He presents for definitive amputation. PROCEDURE IN DETAIL: The patient was marked preoperatively in the holding area. He was brought to the operating theater and after the induction of adequate general anesthesia, he was prepped and draped in a supine position. A time-out was performed. The procedure was begun by marking out the area where the tissues appeared to be viable just adjacent to the nonviable tissue. The left upper extremity was exsanguinated and the tourniquet was inflated to a pressure of 250 mmHg. The incision was made through the skin and subcutaneous tissues circumferentially around the middle phalanx. The incision was deepened dorsally through the extensor tendon mechanism and directly onto the middle phalanx. As the dissection continued volarly, the neurovascular bundles of the radial and ulnar side were identified. The nerves were placed on stretch, then transected and allowed to retract within the soft tissues. The digital arteries are identified. They were noted to be thrombosed and they are transected. At this point, the flexor tendon mechanism is transected and the FDS and FDP tendon is noted to retract within the substance of the flexor tunnel. The volar plate was disarticulated from the base of the distal phalanx and then the middle phalanx is transected in its distal 3rd using a bone cutter. The specimen was then sent for permanent pathologic examination. The distal edge of the middle phalanx was then rasped until has a smooth contour around it. At this point, the soft tissues were then closed with 4-0 nylon in interrupted horizontal mattress fashion. A Marcaine field block was performed at the base of the index finger with 0.5% plain Marcaine. The tourniquet was deflated. The finger pinks up nicely and the wound was noted to be hemostatic. Bactroban ointment Xeroform gauze, and a sterile gauze were applied. The patient was then returned to recovery room in satisfactory condition. MD LORRAINE Lanier/CLOVIS /[id number]
[2019-08-14 17:45] LABS: CREATINE KINASE 128 IU/L (30-200)
--- NOTE | 2019-08-14 19:00 | NUR ---
BEDSIDE SHIFT REPORT GIVEN TO THE PRINT MACHINE OPERATOR RN. PT DENIED FURTHER NEEDS.
[2019-08-14 20:00] VITALS: BP 124/73
[2019-08-14 20:10] VITALS: BP 124/73
--- NOTE | 2019-08-14 20:10 | NUR ---
PATIENT AOX4, NO SIGNS OF DISTRESS NOTED. PATIENT RESTING IN RECLINER AND DRESSING ON LEFT INDEX FINGER IS DRY AND INTACT. PATIENT VOICES PAIN AT A LEVEL OF 5 AND WAS PREVIOUSLY MEDICATED ORDERED. CALL LIGHT IS WITHIN EASY REACH WILL CONTINUE TO MONITOR.
[2019-08-14] MEDS ORDERED: DEXTROSE 50% SYRINGE 50 ML IV PRN (20:15)
[2019-08-14] MEDS: ONDANSETRON HCL INJ 2MG/ML 2ML 2 MG/ML VIAL IV PRN (21:15)
[2019-08-15] MEDS: MORPHINE SULFATE INJ 4 MG/ML INJ 1ML IV PRN ×2 (02:48→06:47)
[2019-08-15] MEDS: ONDANSETRON HCL INJ 2MG/ML 2ML 2 MG/ML VIAL IV PRN ×2 (02:48→06:47)
[2019-08-15 04:00] VITALS: BP 153/74
[2019-08-15] MEDS: ACETAMINOPHEN/CODEINE 300MG - 30MG TAB PO PRN ×2 (04:23→09:21)
[2019-08-15 05:12] LABS: BASOPHILS # (AUTO) 0.1 (0.0-0.1); BASOPHILS % 0.5 % (0.0-1.0); EOSINOPHILS # (AUTO) 0.5 (0.0-0.4); EOSINOPHILS % 3.7 % (0.0-6.0); HEMATOCRIT 40.3 % (38.2-49.6); HEMOGLOBIN 12.7 g/dL (14.0-18.0); LYMPHOCYTES # (AUTO) 2.4 (1.0-3.2); LYMPHOCYTES % 18.2 % (18.0-39.1); MEAN CORPUSCULAR HEMOGLOBIN 30.3 pg (28-32); MEAN CORPUSCULAR HGB CONC 31.5 g/dL (31-35); MEAN CORPUSCULAR VOLUME 96.2 fL (81-99); MONOCYTES # (AUTO) 1.1 (0.2-0.8); MONOCYTES % 8.6 % (4.4-11.3); NEUTROPHILS # (AUTO) 9.2 (2.1-6.9); NEUTROPHILS % 68.5 % (38.7-80.0); PLATELET COUNT 248 x10e3/uL (140-360); RED BLOOD COUNT 4.19 x10e6/uL (4.3-5.7); RED CELL DISTRIBUTION WIDTH 12.3 % (11.7-14.4)
[2019-08-15 05:38] LABS: ANION GAP 14.1 mmol/L (8-16); BLOOD UREA NITROGEN 17 mg/dL (7-26); BUN/CREATININE RATIO 15 (6-25); CALCIUM 8.8 mg/dL (8.4-10.2); CARBON DIOXIDE 28 mmol/L (22-29); CHLORIDE 101 mmol/L (98-107); EST GLOMERULAR FILTRATION RATE > 60 ML/MIN (60-); GLUCOSE 150 mg/dL (74-118); POTASSIUM 4.1 mmol/L (3.5-5.1); SODIUM 139 mmol/L (136-145)
[2019-08-15] MEDS: PIPER-TAZ 3.375 GM 50 ML IV SCH (05:47)
[2019-08-15] MEDS: INSULIN REGULAR, HUMAN 100 UNIT/1 ML 3ML VIAL SQ SCH (07:30)
[2019-08-15 08:54] VITALS: BP 117/78
[2019-08-15] MEDS ORDERED: LISINOPRIL 20 MG TAB PO SCH (09:00)
[2019-08-15] MEDS ORDERED: AUGMENTIN 875-1 EACH PO (10:31)
--- NOTE | 2019-08-15 10:39 | Discharge Summary ---
ADMIT DIAGNOSES: 1. Left index finger dry gangrenous wound with osteomyelitis and surrounding cellulitis. 2. Peripheral artery disease. 3. Thromboangiitis obliterans (Buerger disease). 4. Tobacco abuse. 5. Hypertensive heart disease. 6. Type 2 diabetes mellitus with neuropathy. DISCHARGE DIAGNOSES: 1. Status post left index finger amputation (middle phalanx level). 2. Peripheral artery disease. 3. Thromboangiitis obliterans (Buerger disease). 4. Tobacco abuse. 5. Hypertensive heart disease. 6. Type 2 diabetes mellitus with neuropathy. HOSPITAL COURSE: This is a 49-year-old white man, who was admitted to [facility] with a diagnosis of left index finger dry gangrenous wound infection with osteomyelitis and surrounding cellulitis. This man has a history of peripheral artery disease, namely thromboangiitis obliterans (Buerger disease). The patient also smokes tobacco. During this hospitalization, the patient was seen by a hand specialist, namely Dr. Clive Hubbard, who performed left index finger amputation at the middle phalanx level. The patient tolerated the surgery well. During this hospitalization, he did receive intravenous antibiotics, namely Zosyn, which he tolerated quite well. On admission, the patient's white blood cell count was 14,500 with 61% segmenters. On discharge, white blood cell count was 13,300 with 68% segmenters. The patient's condition on discharge was stable. DISCHARGE MEDICATIONS: 1. Augmentin 875 mg one p.o. b.i.d. for 10 days. 2. Nicotine patch 21 mg one patch daily. 3. Lisinopril 40 mg daily. 4. Metformin 1000 mg daily. 5. Tylenol No. 3 one pill three times a day as needed for pain, 30 prescribed, 1 refill. 6. Vitamin D3 2000 units daily. 7. Vitamin B12 1000 mcg daily. 8. Aspirin 81 mg daily. FOLLOWUP INSTRUCTIONS: The patient was instructed to follow up with Dr. Hubbard within 1 week. The patient was instructed not to remove the dressing from his left index finger until he sees Dr. Hubbard next week. The patient was also told to keep the left index finger bandage clean and dry. Tobacco cessation was highly recommended to the patient. The patient was told that his condition, namely Buerger disease (thromboangiitis obliterans) is highly associated with tobacco smoking. It was also relayed to the patient that the only true cure for thromboangiitis obliterans is complete tobacco cessation. The patient was instructed to follow up with his primary care physician, namely myself, Dr. Maurice Chowdary within 2 weeks. Maurice Chowdary MD MEO/MODL /[id number] cc: Clive Hubbard MD MTDD
== END 2019-08-15 11:47 | disposition home or self-care (01) | DRG 256 ==
LOC: ER 13:57 → ERHOLD 15:12 → UNDOADMIN 15:38 → ERHOLD 15:38 → OR 08-14 08:37 → INTOOBSV 08-14 09:20 → PACU V 08-14 09:20 → UNDOADMOB 08-14 09:20 → MED/SURG2 08-14 11:00 → PACU V 08-14 11:17
PROVIDERS: ADMIT Internal Medicine; ATTEND Internal Medicine
PROC: 0X6P0Z2 Detachment at Left Index Finger, Mid, Open Approach (ICD-10-PCS; principal; 2019-08-13)
DX: E11.52 Type 2 diabetes mellitus with diabetic peripheral angiopathy with gangrene (principal); M86.142 Other acute osteomyelitis, left hand; E11.40 Type 2 diabetes mellitus with diabetic neuropathy, unspecified; E11.69 Type 2 diabetes mellitus with other specified complication; Z79.4 Long term (current) use of insulin; I73.1 Thromboangiitis obliterans [Buerger's disease]; F17.200 Nicotine dependence, unspecified, uncomplicated; G47.33 Obstructive sleep apnea (adult) (pediatric); I11.9 Hypertensive heart disease without heart failure
CPT/HCPCS: 36415; 71045; 80048; 80053; 81001; 82550; 82553; 82948; 84484; 85025; 85610; 85730; 87040; 87086; 88304; 88305; 88311; 93005; 99285; J1817; J2001; J2250; J2270; J2405; J2543; J3010; J7030; J7050

== ENCOUNTER 2019-08-22 02:23 | Inpatient (IN) | payer OTHER ==
[~2019-08-22] VITALS: Ht 185.4 cm; Wt 127.0 kg
[~2019-08-22 02:23] MED LIST changes: +AUGMENTIN 875-1 EACH PO; +METFORMIN HCL500 MG PO
[2019-08-22 03:28] LABS: BASOPHILS # (AUTO) 0.2 (0.0-0.1); EOSINOPHILS # (AUTO) 1.6 (0.0-0.4); EOSINOPHILS % 10.8 % (0.0-6.0); HEMATOCRIT 42.1 % (38.2-49.6); HEMOGLOBIN 13.7 g/dL (14.0-18.0); LYMPHOCYTES # (AUTO) 2.5 (1.0-3.2); LYMPHOCYTES % 16.7 % (18.0-39.1); MEAN CORPUSCULAR HEMOGLOBIN 30.7 pg (28-32); MEAN CORPUSCULAR HGB CONC 32.5 g/dL (31-35); MEAN CORPUSCULAR VOLUME 94.4 fL (81-99); MONOCYTES # (AUTO) 1.2 (0.2-0.8); MONOCYTES % 8.2 % (4.4-11.3); NEUTROPHILS # (AUTO) 9.3 (2.1-6.9); NEUTROPHILS % 62.8 % (38.7-80.0); PLATELET COUNT 252 x10e3/uL (140-360); RED BLOOD COUNT 4.46 x10e6/uL (4.3-5.7); RED CELL DISTRIBUTION WIDTH 12.2 % (11.7-14.4)
[2019-08-22 03:33] LABS: INR 0.94; PROTHROMBIN TIME 13.1 seconds (11.9-14.5)
[2019-08-22 03:34] LABS: PARTIAL THROMBOPLASTIN TIME 32.6 seconds (23.8-35.5)
[2019-08-22 03:43] LABS: ALANINE AMINOTRANSFERASE 29 IU/L (0-55); ALBUMIN 3.3 g/dL (3.5-5.0); ALBUMIN/GLOBULIN RATIO 0.7 (0.8-2.0); ALKALINE PHOSPHATASE 92 IU/L (40-150); ANION GAP 14.9 mmol/L (8-16); BLOOD UREA NITROGEN 13 mg/dL (7-26); BUN/CREATININE RATIO 14 (6-25); CALCIUM 9.6 mg/dL (8.4-10.2); CARBON DIOXIDE 26 mmol/L (22-29); CHLORIDE 95 mmol/L (98-107); CREATININE, SERUM 0.95 mg/dL (0.72-1.25); EST GLOMERULAR FILTRATION RATE > 60 ML/MIN (60-); GLUCOSE 116 mg/dL (74-118); POTASSIUM 3.9 mmol/L (3.5-5.1); SODIUM 132 mmol/L (136-145)
[2019-08-22] MEDS ORDERED: ONDANSETRON HCL INJ 2MG/ML 2ML 2 MG/ML VIAL IV PRN (06:45)
[2019-08-22] MEDS: SODIUM CHLORIDE 0.9% 1000ML 1,000 ML IV SCH ×3 (07:24→21:19)
[2019-08-22] MEDS: PIPER-TAZ 3.375 GM 50 ML IV SCH ×4 (07:24→23:03)
[2019-08-22] MEDS: VANCOMYCIN 1GM/NS 250 ML 250 ML IV SCH ×2 (08:03→20:44)
[2019-08-22] MEDS: HYDROMORPHONE 1MG/1ML INJ IV PRN ×5 (08:10→21:19)
--- NOTE | 2019-08-22 10:40 | History and Physical ---
CHIEF COMPLAINT: Left index finger pain. HISTORY OF PRESENT ILLNESS: This is a 49[facility], swelling, as well as discoloration. This gentleman has a known history of thromboangiitis obliterans/Buerger disease. In fact last week he underwent amputation of the distal left index finger because of gangrenous infection. This surgery was performed by Dr. Clive Hubbard, his hand surgeon. The patient denies any fever or chills, but states he has intense pain in the left hand. In the emergency room, he was found to have white blood cell count of 14,800 with 62% segmented neutrophils. The patient's hemoglobin is 13.7 g/dL. The patient's BUN and creatinine are 13 and 0.95 respectively. Potassium is 3.9. Sodium 132. The patient adamantly denies smoking any tobacco since he was discharged from the hospital last week on August 15, 2019. REVIEW OF SYSTEMS: GENERAL: No fever or chills. The patient states he lost weight, but he cannot quantify. HEENT: No headaches. No visual changes. CARDIOVASCULAR: No chest pain. No shortness of breath. No cough. GASTROINTESTINAL: No nausea, vomiting, or constipation. GENITOURINARY: No UTI symptoms. NEUROMUSCULAR: Complains of intense pain in his left index finger and hand. ALLERGIES: NO KNOWN DRUG ALLERGIES. HOME MEDICATIONS: 1. Augmentin 875 mg twice a day for a total of 10 days. 2. Nicotine patch 21 mg strength, one patch daily. 3. Lisinopril 40 mg daily. 4. Metformin 1000 mg daily. 5. Tylenol No. 3 one pill three times a day as needed for pain, 30 prescribed (this was written on August 15, 2019). 6. Vitamin D3 2000 units daily. 7. Vitamin B12 1000 mcg daily. 8. Aspirin 81 mg daily. PAST MEDICAL HISTORY: 1. Buerger disease (thromboangiitis obliterans). 2. Tobacco abuse. 3. Hypertensive heart disease. 4. Type 2 diabetes mellitus with neuropathy. 5. Obesity, BMI 36. 6. Sleep apnea. PAST SURGICAL HISTORY: Distal left index finger amputation on August 13, 2019, because of gangrenous infection. FAMILY HISTORY: Mother has rheumatoid arthritis and father has Parkinson's disease. Both parents have hypertension and type 2 diabetes. The patient's 45-year-old sister recently of pancreatic cancer. SOCIAL HISTORY: This man is single and lives alone. 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 He smokes tobacco. Denies any current alcohol or illicit drug use. PHYSICAL EXAMINATION: GENERAL: He is awake, alert, and fluent. He becomes emotional when discussing the possibility of further amputations. VITAL SIGNS: His height is 6 feet 1 inches, weight is 280 pounds, and BMI is 36. Blood pressure is 134/74, pulse 88, respiratory rate 18, temperature 98.1, and oxygen saturation 99% on room air. INTEGUMENT: Skin is warm and dry. No pallor, jaundice, or diaphoresis. HEENT: Anicteric sclerae. Moist mucous membranes. NECK: Supple. CARDIOVASCULAR: Distant heart sounds. Regular rate and rhythm with S4 gallop. LUNGS: No rales. No rhonchi or wheezes. ABDOMEN: Obese yet benign. EXTREMITIES: The left index finger stump is swollen and gangrenous with obvious infection. There is also surrounding erythema encompassing the left hand. NEUROLOGIC: Intact. No gross focal deficits appreciated. DIAGNOSES: 1. Left index finger gangrenous infection. 2. Buerger disease (thromboangiitis obliterans). 3. Tobacco abuse. 4. Hypertensive heart disease. 5. Type 2 diabetes mellitus with neuropathy. PLAN: 1. Highly recommend tobacco cessation. 2. Intravenous antibiotics. 3. Consult hand surgeon since the patient most likely need further amputation. 4. Blood glucose control. 5. Blood pressure control. 6. Nothing after midnight. I spent 40 minutes in the care of this patient. MD DUSTY Alva/CLOVIS /[id number] GRACE
[2019-08-22] MEDS: LISINOPRIL 20 MG TAB PO SCH (11:12)
[2019-08-22] MEDS: ACETAMINOPHEN/CODEINE 300MG - 30MG TAB PO PRN ×3 (15:36→23:03)
[2019-08-22 16:16] VITALS: BP 148/81
[2019-08-22 16:25] VITALS: BP 148/81
[2019-08-22] MEDS: METFORMIN HCL 500 MG TAB PO SCH (17:10)
--- NOTE | 2019-08-22 19:00 | NUR ---
Report to RODOLFO Ponce
[2019-08-22 21:00] VITALS: BP 130/84
[2019-08-22 21:41] VITALS: BP 130/84
[2019-08-23] VITALS (10 sets, daily range): BP systolic 137–161; BP diastolic 71–96
[2019-08-23] MEDS: HYDROMORPHONE 1MG/1ML INJ IV PRN ×5 (00:39→20:35)
[2019-08-23] MEDS: ACETAMINOPHEN/CODEINE 300MG - 30MG TAB PO PRN ×4 (02:00→19:13)
--- NOTE | 2019-08-23 02:00 | NUR ---
PATIENT STATES HIS FINGER IS SPASMING AND HE IS UNABLE TO SLEEP HASN'T SLEPT SINCE HE'S BEEN HERE. PATIENT IS PACING HIS ROOM, CRYING AND SHAKING. CALLED DR. TAPIA TO SEE ABOUT ORDERS. CONTINUING TO MONITOR.
[2019-08-23] MEDS: LORAZEPAM 1 MG TAB PO PRN ×2 (02:18→21:46)
[2019-08-23] MEDS: SODIUM CHLORIDE 0.9% 1000ML 1,000 ML IV SCH (05:09)
[2019-08-23] MEDS: PIPER-TAZ 3.375 GM 50 ML IV SCH ×3 (05:12→18:10)
[2019-08-23 06:23] LABS: BASOPHILS # (AUTO) 0.1 (0.0-0.1); EOSINOPHILS # (AUTO) 1.7 (0.0-0.4); EOSINOPHILS % 12.3 % (0.0-6.0); HEMATOCRIT 39.2 % (38.2-49.6); HEMOGLOBIN 12.7 g/dL (14.0-18.0); LYMPHOCYTES # (AUTO) 2.2 (1.0-3.2); LYMPHOCYTES % 15.5 % (18.0-39.1); MEAN CORPUSCULAR HEMOGLOBIN 30.5 pg (28-32); MEAN CORPUSCULAR HGB CONC 32.4 g/dL (31-35); MEAN CORPUSCULAR VOLUME 94.2 fL (81-99); MONOCYTES # (AUTO) 1.3 (0.2-0.8); MONOCYTES % 9.4 % (4.4-11.3); NEUTROPHILS # (AUTO) 8.5 (2.1-6.9); NEUTROPHILS % 61.4 % (38.7-80.0); PLATELET COUNT 236 x10e3/uL (140-360); RED BLOOD COUNT 4.16 x10e6/uL (4.3-5.7); RED CELL DISTRIBUTION WIDTH 12.1 % (11.7-14.4)
[2019-08-23 06:47] LABS: ALANINE AMINOTRANSFERASE 28 IU/L (0-55); ALBUMIN 3.2 g/dL (3.5-5.0); ALBUMIN/GLOBULIN RATIO 0.7 (0.8-2.0); ALKALINE PHOSPHATASE 88 IU/L (40-150); ANION GAP 12.4 mmol/L (8-16); BLOOD UREA NITROGEN 13 mg/dL (7-26); BUN/CREATININE RATIO 12 (6-25); CALCIUM 9.6 mg/dL (8.4-10.2); CARBON DIOXIDE 29 mmol/L (22-29); CHLORIDE 95 mmol/L (98-107); CREATININE, SERUM 1.07 mg/dL (0.72-1.25); EST GLOMERULAR FILTRATION RATE > 60 ML/MIN (60-); GLUCOSE 121 mg/dL (74-118); POTASSIUM 4.4 mmol/L (3.5-5.1); SODIUM 132 mmol/L (136-145)
--- NOTE | 2019-08-23 07:10 | NUR ---
PATIENT OUT OF BED TO CHAIR. C/O PAIN AND WAS MEDICATED ORDERED. REMAINS NPO FOR A PROCEDURE, IV FLUID INFUSING ORDERED. CALL LIGHT AT REACH.
[2019-08-23] MEDS: VANCOMYCIN 1GM/NS 250 ML 250 ML IV SCH ×2 (07:37→20:43)
--- NOTE | 2019-08-23 07:50 | NUR ---
PATIENT OFF UNIT TO OR.
[2019-08-23] MEDS ORDERED: BUPIVACAINE HCL 0.5% INJ 30 ML VIAL INJ ONE (08:05)
[2019-08-23] MEDS ORDERED: BACITRACIN 50,000 UNIT VIAL ONE (08:05)
[2019-08-23] MEDS ORDERED: MUPIROCIN 2% OINT 22 GM TUBE ONE (08:05)
[2019-08-23] MEDS ORDERED: LISINOPRIL 10 MG TAB PO SCH (09:00)
[2019-08-23] MEDS: LISINOPRIL 20 MG TAB PO SCH (10:40)
--- NOTE | 2019-08-23 10:40 | NUR ---
PATIENT BACK TO UNIT FROM OR. REPORT RECEIVED FROM RODOLFO ROSALES. PATIENT HAD HIS LEFT INDEX FINGER AMPUTATED. DRESSING WITH EFRAIN WRAP DRY AND INTACT, PATIENT ABLE TO WIGGLE THE REST OF FINGERS. ASSISTED TO THE RESTROOM AND BACK TO BED SIDE. C/O HUNGER, SNACK PROVIDED. BED IN LOWER POSITION, CALL LIGHT AT REACH. V/S 97.2-84-20-161/96 AND 99% ON RA. SCHEDULED B/P MEDICATION GIVEN ORDERED.
[2019-08-23] MEDS ORDERED: ONDANSETRON HCL INJ 2MG/ML 2ML 2 MG/ML VIAL ONE (13:57)
[2019-08-23] MEDS ORDERED: SEVOFLURANE INHAL SOLN 250 ML PEN BTL ONE (13:57)
[2019-08-23] MEDS ORDERED: PROPOFOL IV EMULSION 10 MG/ML 20 ML VIAL ONE (13:57)
[2019-08-23] MEDS ORDERED: DEXAMETHASONE SOD PHOS INJ 4 MG/ML VIAL ONE (13:57)
[2019-08-23] MEDS ORDERED: LIDOCAINE HCL 2% LOCAL INJ 5 ML SDV VIAL INJ ONE (13:57)
--- NOTE | 2019-08-23 16:22 | NUR ---
MD IN TO SEE PATIENT, NEW ORDERS RECEIVED.
--- NOTE | 2019-08-23 16:52 | Operative Report ---
DATE OF PROCEDURE: 08/22/2019 SURGEON: Clive Hubbard MD PREOPERATIVE DIAGNOSIS: Gangrene, left index finger. POSTOPERATIVE DIAGNOSES: Gangrene, left index finger; flexor tenosynovitis purulent, left index finger. PROCEDURES: Amputation, left index finger MPJ level. HISTORY: The patient is a 49-year-old [id number] male, who carries a diagnosis of Buerger's disease. The patient underwent amputation on 08/14 of the left index finger at the middle phalanx level for gangrenous changes. Postoperatively, the patient was doing fine until approximately 36 to 48 hours ago when he stated that he noted discoloration of the finger. This progressed and the patient then went to the emergency room yesterday. Examination revealed complete necrosis of the volar aspect of the proximal and middle phalanx. There is purulent exudate emanating from the suture line. The patient now presents for definitive reamputation of the left index finger. Risks, benefits, and alternatives of treatment were discussed with the patient and he is prepared to undergo the procedure as outlined. PROCEDURE IN DETAIL: The patient was marked preoperatively in the holding area. He was brought to the operating theater and after the induction of adequate general anesthesia, he was prepped and draped in a supine position and a time-out was performed. The left upper extremity was elevated for approximately 3-4 minutes and then the tourniquet inflated to a pressure of 250 mmHg. The incision is marked out where the demarcation between the viable and nonviable skin is. The incision was then made through the skin and subcutaneous tissues. Venous tributaries were controlled with bipolar cautery. The extensor tendon mechanism is identified over the proximal phalanx and this was transected all the way down to the cortical level. The incisions were then carried volarly on the radial and ulnar aspects of the finger. The neurovascular bundles of the radial and ulnar side of the finger are identified. The nerves are placed on a gentle amount of scratch. They were transected and the proximal stump was allowed to retract into the soft tissue substance. The digital artery and veins are clamped and then transected, and they were tied with 4-0 Vicryl sutures. At this point, the flexor tendons are transected and a copious amount of purulent exudate is emanating from the distal portion of the finger. The tendons are transected and then the bone is cut using an oscillating saw just above the base of the proximal phalanx. The flexor tendon sheath is then copiously irrigated with approximately 500 mL of antibiotic containing solution. Of note is that when the purulence was encountered, this was sent for both aerobic and anaerobic studies. At this point, the wound appears clear, however, quarter-inch packing was placed into the tendon sheath and then the dorsal skin flap was then brought volarly and secured with 4-0 nylon sutures in interrupted horizontal mattress fashion. A Marcaine field block was performed at the operative site. Tourniquet was deflated and once again the amputation stump appears to be well vascularized and is hemostatic. A sterile bulking conforming bandage was applied and the patient returned to recovery room in satisfactory condition. MD LORRAINE Lanier/CLOVIS /[id number]
[2019-08-23] MEDS: METFORMIN HCL 500 MG TAB PO SCH (17:35)
--- NOTE | 2019-08-23 19:00 | NUR ---
RECEIVED PATIENT IN BEDSIDE REPORT. PAIN MEDICATION GIVEN AT THIS TIME, PAIN 03/14. NO S&S OF DISTRESS NOTED. BED LOCKED IN LOWEST POSITION, SIDE RAILS UPX2, CALL LIGHT IN REACH.
[2019-08-23] MEDS ORDERED: FENTANYL CITRATE/PF 100MCG/2 ML INJ ONE (19:19)
[2019-08-23] MEDS ORDERED: MIDAZOLAM HCL 2 MG/2 ML VIAL ONE (19:19)
--- NOTE | 2019-08-23 21:02 | NUR ---
PATIENT REFUSED PM BLOOD SUGAR CHECK.
[2019-08-24] VITALS (8 sets, daily range): BP systolic 118–160; BP diastolic 61–95
[2019-08-24] MEDS: HYDROMORPHONE 1MG/1ML INJ IV PRN ×7 (00:07→21:35)
[2019-08-24] MEDS: ACETAMINOPHEN/CODEINE 300MG - 30MG TAB PO PRN ×6 (03:00→23:37)
[2019-08-24] MEDS: PIPER-TAZ 3.375 GM 50 ML IV SCH ×5 (05:55→23:36)
[2019-08-24 06:45] LABS: BASOPHILS # (AUTO) 0.1 (0.0-0.1); BASOPHILS % 0.6 % (0.0-1.0); EOSINOPHILS # (AUTO) 0.5 (0.0-0.4); EOSINOPHILS % 3.5 % (0.0-6.0); HEMATOCRIT 37.2 % (38.2-49.6); HEMOGLOBIN 12.4 g/dL (14.0-18.0); LYMPHOCYTES # (AUTO) 2.8 (1.0-3.2); LYMPHOCYTES % 18.6 % (18.0-39.1); MEAN CORPUSCULAR HGB CONC 33.3 g/dL (31-35); MONOCYTES # (AUTO) 1.3 (0.2-0.8); MONOCYTES % 8.5 % (4.4-11.3); NEUTROPHILS # (AUTO) 10.1 (2.1-6.9); NEUTROPHILS % 68.3 % (38.7-80.0); PLATELET COUNT 256 x10e3/uL (140-360)
[2019-08-24 06:54] LABS: BLOOD UREA NITROGEN 16 mg/dL (7-26); BUN/CREATININE RATIO 16 (6-25); CARBON DIOXIDE 25 mmol/L (22-29); CHLORIDE 98 mmol/L (98-107); EST GLOMERULAR FILTRATION RATE > 60 ML/MIN (60-); GLUCOSE 136 mg/dL (74-118); SODIUM 134 mmol/L (136-145)
[2019-08-24] MEDS: LISINOPRIL 20 MG TAB PO SCH (08:25)
[2019-08-24] MEDS: VANCOMYCIN 1GM/NS 250 ML 250 ML IV SCH ×2 (09:25→19:35)
--- NOTE | 2019-08-24 15:30 | NUR ---
Visit made by the LIZ Gouldlain. Package Sorter provided pastoral presence, prayer, hospitality, and supportive listening. Package Sorter informed pt/family of the scope of [facility] [employer] and availability. DRISS GRAGNER Package Sorter Spiritual Care Department O: [phone] Pager: [phone] ([phone] number calling from)
[2019-08-24] MEDS: METFORMIN HCL 500 MG TAB PO SCH (17:03)
--- NOTE | 2019-08-24 19:15 | NUR ---
patient received awake, alert, sitting up in bed. vss. pm assessment complete. patient instructed to call for assistance when needed.
[2019-08-24] MEDS: LORAZEPAM 1 MG TAB PO PRN (19:34)
--- NOTE | 2019-08-24 19:34 | NUR ---
patient medicated with tylenol #3 po for c/o left index finger pain 6/10 at this time and ativan 1mg po for increased anxiety. will continue to monitor.
[2019-08-25] VITALS (9 sets, daily range): BP systolic 140–158; BP diastolic 75–90
[2019-08-25] MEDS: HYDROMORPHONE 1MG/1ML INJ IV PRN ×5 (02:05→20:03)
[2019-08-25] MEDS: ACETAMINOPHEN/CODEINE 300MG - 30MG TAB PO PRN ×4 (05:10→21:50)
[2019-08-25] MEDS: PIPER-TAZ 3.375 GM 50 ML IV SCH ×2 (05:11→13:00)
[2019-08-25 06:46] LABS: BASOPHILS # (AUTO) 0.2 (0.0-0.1); BASOPHILS % 1.2 % (0.0-1.0); EOSINOPHILS # (AUTO) 1.2 (0.0-0.4); EOSINOPHILS % 9.1 % (0.0-6.0); HEMATOCRIT 39.3 % (38.2-49.6); HEMOGLOBIN 12.8 g/dL (14.0-18.0); LYMPHOCYTES # (AUTO) 2.8 (1.0-3.2); LYMPHOCYTES % 21.6 % (18.0-39.1); MEAN CORPUSCULAR HEMOGLOBIN 30.7 pg (28-32); MEAN CORPUSCULAR HGB CONC 32.6 g/dL (31-35); MEAN CORPUSCULAR VOLUME 94.2 fL (81-99); MONOCYTES # (AUTO) 1.2 (0.2-0.8); MONOCYTES % 9.4 % (4.4-11.3); NEUTROPHILS # (AUTO) 7.5 (2.1-6.9); NEUTROPHILS % 58.2 % (38.7-80.0); PLATELET COUNT 254 x10e3/uL (140-360); RED BLOOD COUNT 4.17 x10e6/uL (4.3-5.7)
[2019-08-25 07:07] LABS: ALANINE AMINOTRANSFERASE 31 IU/L (0-55); ALBUMIN 3.1 g/dL (3.5-5.0); ALBUMIN/GLOBULIN RATIO 0.7 (0.8-2.0); ALKALINE PHOSPHATASE 92 IU/L (40-150); ANION GAP 14.3 mmol/L (8-16); BLOOD UREA NITROGEN 13 mg/dL (7-26); BUN/CREATININE RATIO 11 (6-25); CALCIUM 9.7 mg/dL (8.4-10.2); CARBON DIOXIDE 28 mmol/L (22-29); CHLORIDE 99 mmol/L (98-107); CREATININE, SERUM 1.15 mg/dL (0.72-1.25); EST GLOMERULAR FILTRATION RATE > 60 ML/MIN (60-); GLUCOSE 115 mg/dL (74-118); POTASSIUM 4.3 mmol/L (3.5-5.1); SODIUM 137 mmol/L (136-145)
[2019-08-25] MEDS: LISINOPRIL 20 MG TAB PO SCH (07:51)
[2019-08-25] MEDS: VANCOMYCIN 1GM/NS 250 ML 250 ML IV SCH ×2 (07:56→21:44)
[2019-08-25] MEDS: BACITRACIN ZINC 15 GM OINT TOP SCH (10:51)
[2019-08-25] MEDS: METFORMIN HCL 500 MG TAB PO SCH (16:29)
--- NOTE | 2019-08-25 18:52 | Progress Note ---
DATE: Internal Medicine Progress Note. SUBJECTIVE: The patient had an amputation of left finger due to MRSA infection and gangrene. PHYSICAL EXAMINATION: VITAL SIGNS: Blood pressure 157/90, temperature 98.0 degrees Fahrenheit, heart rate 80 per minute, respiratory rate 18 per minute, O2 saturation 100%. HEART: Showed regular rhythm, normal S1, S2 sound. LUNGS: Clear bilaterally. EXTREMITIES: Showed amputation of the left index finger. Necrotic area on the tip of the right index finger. LABORATORY DATA: On the BMP; sodium 137, potassium 4.3, chloride 99, CO2 of 28, BUN 13, creatinine 1.15, glucose 115. CBC, white count elevated 12,700, hemoglobin 12.8, hematocrit 39.3, platelet count 254,000. PT 13.1, PTT 32.6. AST 19, ALT 31, total bilirubin 0.2, alkaline phosphatase 192. IMPRESSION: 1. Left index finger cellulitis status post amputation with methicillin-resistant Staphylococcus aureus. 2. Peripheral vascular disease. 3. Uncontrolled diabetes mellitus type 2 with diabetic nephropathy. 4. Hypertension. 5. Obesity. 6. Chronic renal failure, stage 2. TREATMENT: 1. Continue vancomycin 1 g IV twice a day. 2. Discontinue Zosyn. 3. Continue morphine 1 mg IV q.3 hours as needed. 4. Zofran 4 mg q.4 hours as needed. 5. Lorazepam 1 mg q.4 hours as needed. 6. Metformin 1000 mg daily. 7. 1 g daily. 8. Lisinopril 40 mg daily. 9. Tylenol with codeine q.3 hours as needed. TIME SPENT: 40 minutes. MD WILMAN Hendricks/CLOVIS /[id number]
--- NOTE | 2019-08-25 19:15 | NUR ---
resume care of patient, [facility], patient reports pain level 7 R/t left finger wound, left hand wound care received from sarahilcarlos, dressing seen dry intact, PRN IV dilaudid given as orderd for severe pain, tolerated well, patient advised to not ambulate w/o standby assistance for safety, seen lying in bed, call light within reach, remain on contact isolation (+)MRSA wound
[2019-08-26] VITALS (8 sets, daily range): BP systolic 140–167; BP diastolic 71–92
[2019-08-26] MEDS: HYDROMORPHONE 1MG/1ML INJ IV PRN ×7 (00:14→21:34)
[2019-08-26] MEDS: LORAZEPAM 1 MG TAB PO PRN ×3 (00:14→23:06)
[2019-08-26] MEDS: ACETAMINOPHEN/CODEINE 300MG - 30MG TAB PO PRN ×6 (05:09→23:07)
--- NOTE | 2019-08-26 07:08 | NUR ---
SBAR report given to oncoming shift RN, reported PRN IV pain medication given at 0700, IV site intact, no distress noted, call light within reach
[2019-08-26 07:17] LABS: BASOPHILS # (AUTO) 0.2 (0.0-0.1); BASOPHILS % 1.2 % (0.0-1.0); EOSINOPHILS # (AUTO) 1.4 (0.0-0.4); EOSINOPHILS % 11.7 % (0.0-6.0); HEMATOCRIT 38.2 % (38.2-49.6); HEMOGLOBIN 12.4 g/dL (14.0-18.0); LYMPHOCYTES # (AUTO) 2.1 (1.0-3.2); LYMPHOCYTES % 17.5 % (18.0-39.1); MEAN CORPUSCULAR HEMOGLOBIN 30.7 pg (28-32); MEAN CORPUSCULAR HGB CONC 32.5 g/dL (31-35); MEAN CORPUSCULAR VOLUME 94.6 fL (81-99); MONOCYTES # (AUTO) 1.1 (0.2-0.8); MONOCYTES % 9.2 % (4.4-11.3); NEUTROPHILS # (AUTO) 7.2 (2.1-6.9); NEUTROPHILS % 59.7 % (38.7-80.0); PLATELET COUNT 264 x10e3/uL (140-360); RED BLOOD COUNT 4.04 x10e6/uL (4.3-5.7); RED CELL DISTRIBUTION WIDTH 11.9 % (11.7-14.4)
[2019-08-26] MEDS: VANCOMYCIN 1GM/NS 250 ML 250 ML IV SCH ×2 (08:21→20:04)
[2019-08-26] MEDS: BACITRACIN ZINC 15 GM OINT TOP SCH (08:22)
[2019-08-26] MEDS: LISINOPRIL 20 MG TAB PO SCH (08:22)
[2019-08-26] MEDS ORDERED: HYDRALAZINE HCL 20 MG/ML VIAL IV PRN (12:15)
--- NOTE | 2019-08-26 14:56 | Progress Note ---
DATE: Internal Medicine Progress Note SUBJECTIVE: The patient is doing well. No significant complaints. Local incision site on the left index finger, the stitches and wound healing pretty well. PHYSICAL EXAMINATION: HEART: Showed regular rhythm. Normal S1, S2 sound. LUNGS: Clear bilaterally. Abdomen: Soft. IMPRESSION: 1. Infection on the left index finger, status post amputation. 2. Peripheral vascular disease. 3. Diabetes mellitus type 2. 4. Hypertension. PLAN OF TREATMENT: We are going to continue with current medication regimen, which includes IV vancomycin. Continue wound care. Continue vancomycin 1 g IV twice a day. Continue Tylenol with codeine one tablet every 3 hours as needed for [id number]-[id number] pain. I will start him on Norvasc 5 mg daily because of hypertension. Continue bacitracin 1 g topically daily, hydralazine 10 mg IV q.4 hours as needed for hypertension. He is on Dilaudid 1 mg IV every 3 hours as needed for severe pain, lisinopril 40 mg daily, lorazepam 1 mg q.4 hours as needed for anxiety, metformin 1000 mg daily and diabetic diet, and Zofran 4 mg IV q.4 hours as needed. MD WILMAN Hendricks/CLOVIS /[id number]
--- NOTE | 2019-08-26 15:45 | NUR ---
Visit made by the Spiritual Care Department Pastoral Visitor, Juany Washington. PV provided pastoral presence, hospitality, and supportive listening. Pastoral Visitor informed pt/family of the scope of Ordering Machine Operator Services and availability. DRISS GRANGER Couture Dressmaker Spiritual Care Department O: [phone] Pager: [phone] ([phone] calling from)
[2019-08-26] MEDS: METFORMIN HCL 500 MG TAB PO SCH (16:36)
[2019-08-27] VITALS: BP 158/75
[2019-08-27] MEDS: HYDROMORPHONE 1MG/1ML INJ IV PRN ×3 (01:04→07:40)
[2019-08-27] MEDS: LORAZEPAM 1 MG TAB PO PRN ×2 (03:17→06:18)
[2019-08-27] MEDS: ACETAMINOPHEN/CODEINE 300MG - 30MG TAB PO PRN ×3 (03:18→10:16)
[2019-08-27 04:00] VITALS: BP 139/92
[2019-08-27 06:16] LABS: BASOPHILS # (AUTO) 0.1 (0.0-0.1); BASOPHILS % 0.9 % (0.0-1.0); EOSINOPHILS # (AUTO) 1.7 (0.0-0.4); EOSINOPHILS % 14.2 % (0.0-6.0); HEMATOCRIT 39.5 % (38.2-49.6); HEMOGLOBIN 12.8 g/dL (14.0-18.0); LYMPHOCYTES % 16.2 % (18.0-39.1); MEAN CORPUSCULAR HEMOGLOBIN 30.6 pg (28-32); MEAN CORPUSCULAR HGB CONC 32.4 g/dL (31-35); MEAN CORPUSCULAR VOLUME 94.5 fL (81-99); MONOCYTES % 8.5 % (4.4-11.3); NEUTROPHILS # (AUTO) 7.2 (2.1-6.9); NEUTROPHILS % 59.6 % (38.7-80.0); PLATELET COUNT 276 x10e3/uL (140-360); RED BLOOD COUNT 4.18 x10e6/uL (4.3-5.7)
[2019-08-27 07:47] LABS: ALANINE AMINOTRANSFERASE 37 IU/L (0-55); ALBUMIN 3.1 g/dL (3.5-5.0); ALBUMIN/GLOBULIN RATIO 0.7 (0.8-2.0); ALKALINE PHOSPHATASE 95 IU/L (40-150); ANION GAP 13.2 mmol/L (8-16); BLOOD UREA NITROGEN 12 mg/dL (7-26); BUN/CREATININE RATIO 11 (6-25); CALCIUM 9.7 mg/dL (8.4-10.2); CARBON DIOXIDE 29 mmol/L (22-29); CHLORIDE 97 mmol/L (98-107); CREATININE, SERUM 1.12 mg/dL (0.72-1.25); EST GLOMERULAR FILTRATION RATE > 60 ML/MIN (60-); GLUCOSE 142 mg/dL (74-118); POTASSIUM 4.2 mmol/L (3.5-5.1); SODIUM 135 mmol/L (136-145)
[2019-08-27 07:53] VITALS: BP 169/86
[2019-08-27 08:20] VITALS: BP 169/86
[2019-08-27] MEDS: VANCOMYCIN 1GM/NS 250 ML 250 ML IV SCH (08:20)
[2019-08-27] MEDS: LISINOPRIL 20 MG TAB PO SCH (08:20)
[2019-08-27] MEDS ORDERED: AMLODIPINE BESYLATE 5 MG TAB PO SCH (09:00)
[2019-08-27] MEDS: BACITRACIN ZINC 15 GM OINT TOP SCH (10:11)
[2019-08-27] MEDS ORDERED: TYLENOL WITH C1 EACH PO ×2 (10:15→10:27)
[2019-08-27] MEDS ORDERED: BACTRIM DS TAB1 EACH PO (10:25)
[2019-08-27] MEDS ORDERED: ASPIR 8181 MG PO (10:26)
[2019-08-27] MEDS ORDERED: XARELTO20 MG PO (10:26)
[2019-08-27] MEDS ORDERED: BACITRACIN15 GM TOP (10:26)
[2019-08-27] MEDS ORDERED: AMLODIPINE BESYL5 MG PO (10:30)
[2019-08-27] MEDS ORDERED: ATIVAN0.5 MG PO (10:30)
[2019-08-27] MEDS ORDERED: LISINOPRIL10 MG PO (10:30)
[2019-08-27] MEDS ORDERED: METFORMIN HCL500 MG PO (10:31)
[2019-08-27 10:37] LABS: CHOL/HDL RATIO 2.9 (3.9-4.7)
--- NOTE | 2019-08-27 11:02 | Discharge Summary ---
ADMIT DIAGNOSES: 1. Left index finger gangrenous infection. 2. Buerger's disease (thromboangiitis obliterans). 3. Tobacco abuse. 4. Hypertensive heart disease. 5. Type 2 diabetes mellitus with neuropathy. DISCHARGE DIAGNOSES: 1. Status post left index finger stump amputation at metacarpophalangeal junction level. 2. MRSA left finger infection, resolving. 3. Buerger's disease (thromboangiitis obliterans). 4. 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 5. Tobacco abuse. 6. Hypertensive heart disease. 7. Type 2 diabetes with neuropathy. HOSPITAL COURSE: This is a 49-year-old white man, who was admitted to [facility] with diagnosis of left index finger gangrenous infection. This one week prior the patient undergone amputation of the distal left index finger because of a gangrenous infection. He was also recently diagnosed with Buerger's disease/thromboangitis obliterans. During this hospitalization, the patient was seen by his hand surgeon, namely Dr. Clive Hubbard, who performed amputation of left index finger at the metacarpophalangeal junction level. During the surgery, the patient was found to have purulent flexor tenosynovitis. This drainage was sent for culture, which revealed MRSA bacterial species. The patient improved clinically after amputation and with intravenous antibiotics namely vancomycin. The patient's hospitalization was unremarkable. The patient underwent bilateral upper extremity arterial ultrasound, which revealed no atherosclerotic plaques. It did not reveal any significant arthrosclerotic plaques in the right upper extremity, but on the left lower extremity, there was evidence of total occlusion of left ulnar artery. The drama therapist felt that possible thrombosis present. All other arteries in the left upper extremity were normal according the drama therapist, who interpreted the upper extremity arterial ultrasound. During this hospitalization, a thrombophilia panel was drawn, but results were still pending on discharge. The decision was made to start the patient on anticoagulation namely Xarelto 20 mg daily in addition to aspirin 81 mg daily. Tobacco cessation was highly recommended to the patient. CONDITION ON DISCHARGE: Stable. DISCHARGE MEDICATIONS: 1. Lisinopril 40 mg daily. 2. Amlodipine 5 mg daily. 3. Metformin 1000 mg daily. 4. Tylenol No. 4, one p.o. t.i.d. p.r.n. pain, 30 prescribed, no refills. 5. Lorazepam 1 mg p.o. at bedtime p.r.n. insomnia/anxiety, 20 prescribed, no refills. 6. Bactrim DS b.i.d. for 10 days. 7. Bactroban or mupirocin 2% ointment apply to the left index finger stump wound twice a day for 10 days. 9. Xarelto 20 mg daily. 10. Aspirin 81 mg daily. FOLLOWUP INSTRUCTIONS: The patient was instructed to follow up with his primary care physician and with Dr. Maurice Chowdary within 7 to 10 days. Once again tobacco cessation was highly recommended to the patient. The patient to follow up with Dr. Hubbard, hand surgeon within two weeks. The patient also follow up with Cardiology namely, Dr. Nicolas Schmidt within the next 2 to 3 weeks because of his left ulnar artery thrombosis/peripheral artery disease. MD DUSTY Alva/MISTYL /[id number] cc: MD Clive Lal MD Dr. MTDGraeme
--- NOTE | 2019-08-27 11:14 | NUR ---
Patient discharged home, dressing changed in left index finger, Dr Chowdary and Dr Hubbard had rounds, prescription given, IV canula removed with tip intact, No SS of infiltration, Patient aware about f/up appointments, discharge instructions given. Transported to [facility] via wheelchair
[2019-09-11] MEDS ORDERED: MUPIROCIN22 GM TOP (11:33)
[2019-09-11] MEDS ORDERED: PROCARDIA XL30 MG PO (11:34)
[2019-09-11] MEDS ORDERED: HYDROMORPHONE HC2 MG PO (11:36)
[2019-09-11] MEDS ORDERED: ISOSORBIDE MONO30 MG PO (11:37)
[2019-09-11] MEDS ORDERED: PRISTIQ ER50 MG PO (11:37)
[2019-09-11] MEDS ORDERED: CLINDAMYCIN HC150 MG PO (11:40)
== END 2019-08-27 11:12 | disposition home or self-care (01) | DRG 513 ==
LOC: ER 02:23 → ERHOLD 06:46 → MED/SURG3 20:42
PROVIDERS: ADMIT Internal Medicine; ATTEND Internal Medicine
PROC: 0X6P0Z0 Detachment at Left Index Finger, Complete, Open Approach (ICD-10-PCS; principal; 2019-08-23 08:30)
DX: T87.42 Infection of amputation stump, left upper extremity (principal); E11.52 Type 2 diabetes mellitus with diabetic peripheral angiopathy with gangrene; I74.2 Embolism and thrombosis of arteries of the upper extremities; I73.1 Thromboangiitis obliterans [Buerger's disease]; Z89.022 Acquired absence of left finger(s); Z82.49 Family history of ischemic heart disease and other diseases of the circulatory system; Z83.3 Family history of diabetes mellitus; Z79.82 Long term (current) use of aspirin; Z79.84 Long term (current) use of oral hypoglycemic drugs; E11.42 Type 2 diabetes mellitus with diabetic polyneuropathy; E66.9 Obesity, unspecified; Z68.36 Body mass index [BMI] 36.0-36.9, adult; G47.30 Sleep apnea, unspecified; Z82.61 Family history of arthritis; Z84.89 Family history of other specified conditions; Z80.8 Family history of malignant neoplasm of other organs or systems; L03.012 Cellulitis of left finger; E11.21 Type 2 diabetes mellitus with diabetic nephropathy; E11.22 Type 2 diabetes mellitus with diabetic chronic kidney disease; I13.10 Hypertensive heart and chronic kidney disease without heart failure, with stage 1 through stage 4 chronic kidney disease, or unspecified chronic kidney disease; N18.2 Chronic kidney disease, stage 2 (mild); Z72.0 Tobacco use; B95.62 Methicillin resistant Staphylococcus aureus infection as the cause of diseases classified elsewhere; M65.142 Other infective (teno)synovitis, left hand
CPT/HCPCS: 36415; 80048; 80053; 80061; 80202; 81241; 81400; 82948; 85025; 85303; 85306; 85610; 85730; 87040; 87071; 87075; 87186; 87205; 88304; 88305; 88311; 93005; 93930; 99284; J0360; J1100; J1170; J2001; J2250; J2405; J2543; J3010; J3370; J7030

== ENCOUNTER → 2019-09-26 | Outpatient (CLI) | payer OTHER ==
[~2019-09-26] MED LIST changes: +AMLODIPINE BESYL5 MG PO; +ASPIR 8181 MG PO; +ATIVAN0.5 MG PO; +BACITRACIN15 GM TOP; +BACTRIM DS TAB1 EACH PO; +HYDROMORPHONE HC2 MG PO; +ISOSORBIDE MONO30 MG PO; +KEFLEX500 MG PO; +MUPIROCIN22 GM TOP; +PRISTIQ ER50 MG PO; +PROCARDIA XL30 MG PO; +Tylenol # 4 PO; +XARELTO20 MG PO; +ZANAFLEX4 MG PO
--- NOTE | 2019-10-16 05:42 | Polysomnography ---
DATE OF STUDY: 09/26/2019 REFERRING PHYSICIAN: Gabriela Sanchez MD DIAGNOSTIC POLYSOMNOGRAM. HISTORY: This is a 49-year-old gentleman with excessive daytime sleepiness. The patient with history of multiple home sleep studies with poor pulse oximetry readings due to vascular disease. The patient with past medical history of diabetes, hypertension, Buerger disease, status post finger amputations. The patient's medications include lisinopril, metformin, and zolpidem. Current BMI is 36.9. Holland Sleepiness Scale score is 4. The patient presents for diagnostic polysomnogram. FINDINGS: Polysomnogram demonstrates total sleep time of 327 minutes for sleep efficiency of 87.4%. Sleep onset latency was achieved in 0.5 minutes with REM latency in 15.5 minutes as reviewed on polysomnogram acquisition. REM sleep onset at 2308 hours. Stage N1 is 6.1%, stage N2 is 75.4%, stage N3 is 0.8%, and stage R 17.7% of total sleep time. Intermittent snoring noted throughout most of this study. A total of 20 hypopneas and 29 obstructive apneas were noted for an apnea-hypopnea index of 9.0 events per hour. There was multiple pulse oximetry artifact on this night. Baseline oxygen saturations while awake from 89% to 95%. Multiple desaturations were noted including 53% at lowest. The patient slept 41% of this night in supine position. A total of 377 periodic limb movements of sleep were recorded for periodic limb movement index of 69.2 events per hour. Most of the movements were low amplitude, but they persisted throughout the night and yet were not easily discriminated from the persistent snoring/respiratory events. Single lead EKG analysis demonstrated sinus rhythm without significant abnormality. INTERPRETATION: This was an abnormal diagnostic polysomnogram due to the presence of: 1. Mild obstructive sleep apnea. Sleep apnea may be associated with thyroid disease, obesity, and structure/obstructive abnormalities in the upper airway. An evaluation into these factors associated with sleep apnea may be beneficial. The patient is recommended for an in-lab polysomnogram for treatment of this sleep apnea. There should be a focus on continuing to obtain good oxygen saturation readings given the patient's specific history of circulatory disorders. Alternatives to CPAP therapy are available, but given the patient's desaturations, these may be less preferred. Of note, the patient is under the care of sleep specialist, Dr. Sanchez. 2. Periodic limb movements in sleep. The patient had a periodic limb movement index of 69.2 events per hour and these limb movements were scattered throughout the night. Because of the patient's persistent snoring events and respiratory events throughout the night, these limb movements were difficult to differentiate from respiratory related limb movements and respiratory events. Therefore, re-evaluation is recommended after a 2nd night polysomnogram for CPAP. 3. Altered sleep architecture, sleep onset REM. Patient had sleep onset REM during this night within 15.5 minutes of going to sleep. This is a nonspecific finding and may be seen in sleep disorders such as obstructive sleep apnea, and other disorders that lead to sleep deprivation, sleep phase disorders and sometimes in narcolepsy. Clinical correlation is recommended, which should include followup after sleep apnea treatment is implemented. If there is a concern for a hypersomnia such as narcolepsy, then consideration for a nocturnal polysomnogram followed by multiple sleep latency testing may be considered. MD BRENTON Maurer Certified in Sleep Medicine GMN/MODL /[id number] GARCE
== END ==
LOC: SLEEP 20:00
PROVIDERS: ATTEND Internal Medicine Sleep Medicine
DX: G47.33 Obstructive sleep apnea (adult) (pediatric) (principal)

== ENCOUNTER 2019-10-09 15:19 | Emergency (ER) | payer OTHER ==
[~2019-10-09] VITALS: Ht 185.4 cm; Wt 127.0 kg
[~2019-10-09 15:19] MED LIST changes: -KEFLEX500 MG PO; -Tylenol # 4 PO; -ZANAFLEX4 MG PO
[2019-10-09] MEDS ORDERED: HYDROCODONE/APAP 7.5MG-325MG 1 EA TAB PO PRN (16:00)
== END 2019-10-09 17:43 | disposition home or self-care (01) ==
LOC: ER 15:19
DX: I73.1 Thromboangiitis obliterans [Buerger's disease] (principal); F17.210 Nicotine dependence, cigarettes, uncomplicated
CPT/HCPCS: 99282

== ENCOUNTER 2019-10-14 20:03 | Emergency (ER) | payer OTHER ==
[~2019-10-14] VITALS: Ht 185.4 cm; Wt 127.0 kg
[2019-10-14] MEDS ORDERED: BUPIVACAINE HCL 0.25% 10ML MPF VIAL INJ ONE (21:00)
[2019-10-14] MEDS ORDERED: NITROGLYCERIN 2% OINT 1 GM PKT TOP ONE (21:00)
[2019-10-14] MEDS ORDERED: NITROGLYCERIN 2% OINT 1 GM PKT ONE (21:07)
--- NOTE | 2019-10-14 22:27 | NUR ---
pt brought back to triage to speak with md. pt refusing lidocaine injection and nitrobid for pain in hand. pt states that "if i get this the pain will just be back in 5 or 6 hours. i want this taken care of, if he needs to cut it off or do whatever but i want it over with." dr keith states that will contact dr segura to discuss plan of care. pt request that dr mason be contact for admission. dr keith states that will attempt to contact dr mason. pt noted upset, pt continues stating "i just want this taken care." pt states that i will just find a new hand surgeon. pt request to be discharged, refusing further treatment, refusing lidocaine injection and nitrobid. dr keith states to dc at this time.
== END 2019-10-14 22:27 | disposition home or self-care (01) ==
LOC: ER 20:03
DX: M79.644 Pain in right finger(s) (principal); I70.268 Atherosclerosis of native arteries of extremities with gangrene, other extremity; F17.210 Nicotine dependence, cigarettes, uncomplicated
CPT/HCPCS: 99283

== ENCOUNTER 2019-10-17 19:44 | Inpatient (IN) | payer OTHER ==
[~2019-10-17] VITALS: Ht 185.4 cm; Wt 127.0 kg
[2019-10-17] MEDS ORDERED: SODIUM CHLORIDE 0.9% 1000ML 1,000 ML IV SCH (22:22)
[2019-10-17] MEDS ORDERED: DEXTROSE 50% SYRINGE 50 ML IV PRN (22:30)
[2019-10-17] MEDS ORDERED: PIPER-TAZ 3.375 GM 50 ML IV SCH (22:30)
[2019-10-17] MEDS ORDERED: VANCOMYCIN 1GM/NS 250 ML 250 ML IV SCH (22:30)
[2019-10-17] MEDS: MORPHINE SULFATE INJ 4 MG/ML INJ 1ML IV PRN (22:50)
[2019-10-17] MEDS: ONDANSETRON HCL INJ 2MG/ML 2ML 2 MG/ML VIAL IV PRN (22:50)
[2019-10-17 23:11] LABS: BASOPHILS # (AUTO) 0.1 (0.0-0.1); BASOPHILS % 0.7 % (0.0-1.0); EOSINOPHILS # (AUTO) 0.6 (0.0-0.4); EOSINOPHILS % 5.1 % (0.0-6.0); HEMATOCRIT 48.1 % (38.2-49.6); HEMOGLOBIN 15.7 g/dL (14.0-18.0); LYMPHOCYTES # (AUTO) 3.8 (1.0-3.2); LYMPHOCYTES % 31.2 % (18.0-39.1); MEAN CORPUSCULAR HEMOGLOBIN 30.3 pg (28-32); MEAN CORPUSCULAR HGB CONC 32.6 g/dL (31-35); MEAN CORPUSCULAR VOLUME 92.7 fL (81-99); MONOCYTES # (AUTO) 1.1 (0.2-0.8); MONOCYTES % 9.3 % (4.4-11.3); NEUTROPHILS # (AUTO) 6.6 (2.1-6.9); NEUTROPHILS % 53.4 % (38.7-80.0); PLATELET COUNT 277 x10e3/uL (140-360); RED BLOOD COUNT 5.19 x10e6/uL (4.3-5.7)
[2019-10-17 23:23] LABS: INR 0.9; PARTIAL THROMBOPLASTIN TIME 32.9 seconds (23.8-35.5); PROTHROMBIN TIME 12.7 seconds (11.9-14.5)
[2019-10-17 23:32] LABS: ALANINE AMINOTRANSFERASE 36 IU/L (0-55); ALBUMIN 3.9 g/dL (3.5-5.0); ALBUMIN/GLOBULIN RATIO 0.9 (0.8-2.0); ALKALINE PHOSPHATASE 107 IU/L (40-150); ANION GAP 16.8 mmol/L (8-16); BLOOD UREA NITROGEN 15 mg/dL (7-26); BUN/CREATININE RATIO 13 (6-25); CARBON DIOXIDE 27 mmol/L (22-29); CHLORIDE 102 mmol/L (98-107); CREATININE, SERUM 1.13 mg/dL (0.72-1.25); EST GLOMERULAR FILTRATION RATE > 60 ML/MIN (60-); GLUCOSE 98 mg/dL (74-118); POTASSIUM 3.8 mmol/L (3.5-5.1); SODIUM 142 mmol/L (136-145)
[2019-10-18] VITALS (7 sets, daily range): BP systolic 101–140; BP diastolic 56–67
[2019-10-18] MEDS ORDERED: LORAZEPAM 1 MG TAB PO PRN ×2 (01:45→10:45)
[2019-10-18] MEDS ORDERED: ACETAMINOPHEN 325 MG TAB PO PRN (02:30)
[2019-10-18 05:42] LABS: BASOPHILS # (AUTO) 0.1 (0.0-0.1); BASOPHILS % 0.8 % (0.0-1.0); EOSINOPHILS # (AUTO) 0.8 (0.0-0.4); HEMATOCRIT 43.5 % (38.2-49.6); HEMOGLOBIN 14.1 g/dL (14.0-18.0); LYMPHOCYTES # (AUTO) 3.5 (1.0-3.2); MEAN CORPUSCULAR HEMOGLOBIN 30.1 pg (28-32); MEAN CORPUSCULAR HGB CONC 32.4 g/dL (31-35); MEAN CORPUSCULAR VOLUME 92.9 fL (81-99); MONOCYTES # (AUTO) 1.2 (0.2-0.8); MONOCYTES % 10.7 % (4.4-11.3); NEUTROPHILS # (AUTO) 5.3 (2.1-6.9); NEUTROPHILS % 49.1 % (38.7-80.0); PLATELET COUNT 219 x10e3/uL (140-360); RED BLOOD COUNT 4.68 x10e6/uL (4.3-5.7); RED CELL DISTRIBUTION WIDTH 13.2 % (11.7-14.4)
[2019-10-18] MEDS: MORPHINE SULFATE INJ 4 MG/ML INJ 1ML IV PRN (05:53)
[2019-10-18] MEDS: ONDANSETRON HCL INJ 2MG/ML 2ML 2 MG/ML VIAL IV PRN (05:53)
[2019-10-18 05:58] LABS: ALANINE AMINOTRANSFERASE 31 IU/L (0-55); ALBUMIN 3.4 g/dL (3.5-5.0); ALBUMIN/GLOBULIN RATIO 0.9 (0.8-2.0); ALKALINE PHOSPHATASE 93 IU/L (40-150); ANION GAP 13.1 mmol/L (8-16); BLOOD UREA NITROGEN 16 mg/dL (7-26); BUN/CREATININE RATIO 13 (6-25); CALCIUM 9.4 mg/dL (8.4-10.2); CARBON DIOXIDE 27 mmol/L (22-29); CHLORIDE 105 mmol/L (98-107); CREATININE, SERUM 1.19 mg/dL (0.72-1.25); EST GLOMERULAR FILTRATION RATE > 60 ML/MIN (60-); GLUCOSE 95 mg/dL (74-118); POTASSIUM 4.1 mmol/L (3.5-5.1); SODIUM 141 mmol/L (136-145)
[2019-10-18] MEDS ORDERED: INSULIN REGULAR, HUMAN 100 UNIT/1 ML 3ML VIAL SQ SCH (07:30)
[2019-10-18] MEDS ORDERED: MUPIROCIN 2% OINT 22 GM TUBE ONE (08:07)
[2019-10-18] MEDS ORDERED: BUPIVACAINE HCL 0.5% INJ 30 ML VIAL INJ ONE (08:08)
[2019-10-18] MEDS ORDERED: ONDANSETRON HCL INJ 2MG/ML 2ML 2 MG/ML VIAL ONE ×2 (10:13→17:34)
[2019-10-18] MEDS ORDERED: DEXTROSE 50% SYRINGE 50 ML IV PRN (10:45)
[2019-10-18] MEDS ORDERED: HYDROMORPHONE 1MG/1ML INJ IV PRN (10:45)
[2019-10-18] MEDS ORDERED: HYDROCODONE/APAP 7.5MG-325MG 1 EA TAB PO PRN (10:45)
--- NOTE | 2019-10-18 11:24 | History and Physical ---
CHIEF COMPLAINT: "My fingers hurt horribly." HISTORY OF PRESENT ILLNESS: This is a 49-year-old white man, who presents to [facility] with complaints of intense pain in his right index and right third finger. In the emergency room, he was found to have gangrenous ischemic wounds on the distal aspect of his right index and right third finger. This gentleman has known history of Buerger disease/thromboangiitis obliterans. The patient states his last cigarette was one week prior to admission. In the emergency room, the patient was found to have white blood cell count 12,200 with 53% segmented neutrophils. The patient's comprehensive metabolic profile was unremarkable. This morning, the patient underwent amputation of the distal right index and right 3rd finger just distal to the metacarpal phalangeal joint. The patient tolerated surgery quite well. The patient's surgeon was Dr. Clive Hubbard. The patient states he still has significant amount of pain, which he describes as spasm type pain radiating to his right forearm. The patient denies any fever or chills. REVIEW OF SYSTEMS: GENERAL: Weight is stable. No fever or chills. HEENT: No headaches. No visual changes. CARDIOVASCULAR/RESPIRATORY: No chest pain. No shortness of breath or cough. GI: No nausea, vomiting, diarrhea, constipation. : No UTI symptoms. NEUROMUSCULAR: Complains of chronic pain on the distal aspect of his right index and right third finger. PAST MEDICAL HISTORY: 1. Chronic ischemic wounds of the distal right index/third fingers from his thromboangiitis obliterans. 2. Thromboangitis obliterans/Buerger disease. 3. Tobacco abuse. 4. Type 2 diabetes. 5. Hypertensive heart disease. 6. Depression. 7. Obesity. 8. Obstructive sleep apnea. 9. Peripheral artery disease (left ulnar arterial occlusion). HOME MEDICATIONS: 1. Isosorbide mononitrate 30 mg daily. 2. Nifedipine XL 30 mg b.i.d. 3. Xarelto 15 mg daily. 4. Aspirin 81 mg daily. 5. Pristiq 50 mg daily. 6. Lorazepam 1 mg at bedtime p.r.n. insomnia/anxiety. 7. Tylenol No.4 one pill twice a day as needed for pain. 8. Metformin 1000 mg b.i.d. PAST SURGICAL HISTORY: 1. Left index finger amputation because of gangrenous infection in August 2019. 2. Amputation of distal right index and third fingers. 3. Amputation of proximal right index and third fingers today. FAMILY HISTORY: Mother has rheumatoid arthritis and father has Parkinson disease. Both parents have hypertension, type 2 diabetes mellitus. The patient's 45-year-old sister in 2019 because of pancreatic cancer. ALLERGIES: NO KNOWN DRUG ALLERGIES. SOCIAL HISTORY: He is single, lives alone. 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 The patient is a tobacco smoker. The patient denies any current alcohol or illicit drug use. The patient has a remote history of opiate pill abuse. PHYSICAL EXAMINATION: GENERAL: He is awake, alert, and fluent. He is currently in the postanesthesia care unit. Does not appear to be in any obvious distress. VITAL SIGNS: Height 6 feet 1 inch, weight is 280 pounds, BMI 36. Blood pressure is 126, 78, respiratory rate is 16, oxygen saturation 96% on room air, pulse 70, temperature 98.2. INTEGUMENT: Skin is warm and dry. No pallor, jaundice, or diaphoresis. HEENT: Anicteric sclerae with moist mucous membranes. NECK: Supple. CARDIOVASCULAR: Distant heart sounds. Regular rate and rhythm. The patient has a faint systolic ejection murmur. LUNGS: No rales. No rhonchi. ABDOMEN: Obese, benign. EXTREMITIES: The patient has evidence of left index finger amputation that is healed adequately. The patient's currently amputated proximal right index and right finger stumps are currently dressed. NEUROLOGIC: No focal deficits appreciated. DIAGNOSES: 1. Gangrenous right index and right third finger distal wounds. 2. Status post amputation of proximal right index and right third fingers because of gangrenous ischemic wounds. 3. Peripheral artery disease. 4. Thromboangiitis obliterans/Buerger disease. 5. Type 2 diabetes. 6. Hypertensive heart disease. 7. Tobacco abuse. PLAN: 1. Highly recommend absolute tobacco cessation. 2. Blood glucose, monitor and control. 3. Blood pressure, monitor and control. 4. Pain control. 5. We will continue Xarelto and aspirin. 6. The patient to follow up with local protector plate attacher in regard to his left ulnar artery occlusion. I spent 50 minutes in the care of the patient. The patient will likely be discharged home tomorrow Saturday, October 19, 2019. MD DUSTY Alva/CLOVIS /[id number] cc: MD Santos Lanier MD MTDD
[2019-10-18] MEDS: INSULIN LISPRO 100 UNIT/1 ML 3ML VIAL SQ SCH ×3 (11:30→21:00)
--- NOTE | 2019-10-18 11:30 | NUR ---
RECEIVED PATIENT FROM PACU TO ROOM 298. PATIENT IS IN STABLE CONDITION. DRESSING TO RIGHT 2ND AND 3RD DIGIT INTACT, NO DRAINAGE NOTED. PATIENT STATES HE IS NOT IN PAIN AT THIS TIME. ORIENTED TO ROOM AND POLICIES. ADMISSION HISTORY AND INITIAL PHYSICAL ASSESSMENT COMPLETED AND DOCUMENTED. CALL LIGHT WITHIN REACH. BED IN THE LOWEST POSITION.
[2019-10-18] MEDS ORDERED: SODIUM CHLORIDE 0.9% 250ML 250 ML ONE (11:46)
[2019-10-18] MEDS: ISOSORBIDE MONONITRATE 30 MG TAB CR PO SCH (11:49)
[2019-10-18] MEDS: DESVENLAFAXINE SUCCINATE 50 MG TAB.SR.24H PO SCH (11:50)
[2019-10-18] MEDS: HYDROMORPHONE 1MG/1ML INJ IV PRN ×4 (12:00→22:47)
[2019-10-18] MEDS: VANCOMYCIN 1GM/NS 250 ML 250 ML IV SCH (12:00)
--- NOTE | 2019-10-18 12:30 | Consultation ---
DATE OF CONSULTATION: Consult is being requested by Dr. Brooke, Emergency Department. The consult requested of Clive Hubbard MD, Hand Surgery. CHIEF COMPLAINT: Gangrene, right index and long fingers. HISTORY OF PRESENT ILLNESS: The patient is a 49-year-old male, who carries a diagnosis of Buerger's disease (thromboangiitis obliterans). The patient has been largely noncompliant with his smoking cessation program. He underwent amputation of the right index and long fingers approximately one month ago at the distal interphalangeal level. The patient has subsequently developed ischemic necrosis of the tissues distally involving the middle phalanges. The patient went to the emergency room this evening in acute distress. Consultation is now requested for optimal management. PERTINENT PHYSICAL EXAMINATION: VITAL SIGNS: The patient is afebrile and the vital signs are stable. GENERAL: He is in moderate acute distress. EXTREMITIES: There is ischemic changes involving the soft tissues of the middle phalanges of the index and the long fingers. There is dry adherent eschar at the previous surgical site and the previous sutures were still in place. 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 PLAN: The patient will be kept n.p.o. after midnight. He will be taken to the OR in the morning and we will amputate the digits at a more proximal level to have viable tissues and circulation for healing. Clive Hubbard MD ER/MODL /[id number]
--- NOTE | 2019-10-18 13:06 | Operative Report ---
DATE OF PROCEDURE: 10/18/2019 SURGEON: Clive Hubbard MD PREOPERATIVE DIAGNOSES: 1. Gangrene, right index. 2. Gangrene, right long fingers. POSTOPERATIVE DIAGNOSES: 1. Gangrene, right index. 2. Gangrene, right long fingers. PROCEDURES: 1. Amputation of right index finger, PIP joint. 2. Amputation of right long finger, PIP joint. ANESTHESIA: General. HISTORY: The patient is a 49-year-old male, who carries a diagnosis of Buerger's disease. He underwent amputations of the index and long fingers approximately one month ago at the level of the DIP joint. The patient has been largely noncompliant with the smoking cessation program and now presents with ischemic necrosis of the middle phalanges of the index and long fingers. Risks, benefits, and alternatives of treatment were discussed with the patient. He is prepared to undergo the procedure as outlined. PROCEDURE IN DETAIL: The patient was marked preoperatively in the holding area. He was brought to the operating theater and after the induction of adequate general anesthesia, he was prepped and draped in a supine position and a time-out was performed. The right upper extremity was exsanguinated. Tourniquet was inflated to a pressure of 250 mmHg. Incisions were marked out to utilize the volar skin of the middle phalanx on both fingers. Once these flaps were designed, the incisions were made through the dorsal skin and subcutaneous tissue through the extensor tendon directly onto the cortical surface of the middle phalanx just distal to the PIP joint. The incisions were then carried to the mid lateral aspect and then onto the volar aspect of the finger. The joint was disarticulated dorsally. The collateral ligaments were transected and then the joint is shotgunned. Both the radial and ulnar neurovascular bundles were identified on the index finger. They were dissected free. The digital nerves were placed on stretch, transected sharply in the proximal and allowed to retract into the soft tissue substance. The arteries are identified and ligated and tied with 4-0 silk sutures. At this point, the remainder of the finger was then released from the soft tissue attachments and sent for permanent pathologic examination. On the index finger, the flap was then brought up dorsally and the excess skin and subcutaneous tissue was sharply trimmed. The wound was then closed with 4-0 nylon in an interrupted horizontal mattress fashion. On the long finger, the incision was made dorsally just distal to the PIP joint through the skin and subcutaneous tissues. The incision was carried through the extensor tendon onto the dorsal cortex of the proximal phalanx. Once again, the joint was opened and the collateral ligaments were released and the joint is shotgunned. Access to both neurovascular bundles was performed and the digital nerves were transected and allowed to retract proximally into the substance of the soft tissues. The arteries were identified and they were ligated and tied with 4-0 silk sutures. The middle phalanx then was removed from the soft tissues of the volar flap and the finger was then sent for permanent pathologic examination. Once again, the volar flap was brought dorsally and the excess skin and subcutaneous tissue was trimmed and the wound was closed with 4-0 nylon in an interrupted horizontal mattress fashion. A median nerve block was performed using 5 to 6 mL of 0.5% plain Marcaine in the wrist area. The tourniquet was deflated and all the fingers pinked up nicely. The soft tissues of the index and long finger appeared to be viable and the incisions were noted to be hemostatic. Bactroban ointment, Xeroform gauze, and sterile dressings were applied. The patient was returned to recovery room in satisfactory condition. MD LORRAINE Lanier/CLOVIS /[id number]
[2019-10-18] MEDS: ACETAMINOPHEN/CODEINE 300MG - 30MG TAB PO PRN ×3 (13:52→23:49)
[2019-10-18] MEDS: PIPER-TAZ 3.375 GM 50 ML IV SCH ×2 (14:08→22:46)
[2019-10-18] MEDS: NIFEDIPINE CR 30 MG TAB PO SCH (16:17)
[2019-10-18] MEDS: METFORMIN HCL 500 MG TAB PO SCH (16:17)
[2019-10-18] MEDS ORDERED: PROPOFOL IV EMULSION 10 MG/ML 20 ML VIAL ONE (17:34)
[2019-10-18] MEDS ORDERED: LIDOCAINE HCL 2% LOCAL INJ 5 ML SDV VIAL INJ ONE (17:34)
[2019-10-18] MEDS ORDERED: FENTANYL CITRATE/PF 100MCG/2 ML INJ ONE (18:08)
[2019-10-18] MEDS ORDERED: KETAMINE HCL INJ 50 MG/ML 10 ML VIAL ONE (18:08)
[2019-10-18] MEDS ORDERED: MIDAZOLAM HCL 2 MG/2 ML VIAL ONE (18:08)
--- NOTE | 2019-10-18 19:19 | NUR ---
BEDSIDE SHIFT REPORT GIVEN TO ONCOMING NURSE. PATIENT IS RESTING IN BED. NO ACUTE DISTRESS NOTED. MEDICATED WITH PRN PAIN MEDICATION. CALL LIGHT WITHIN REACH. BED IN THE LOWEST POSITION.
--- NOTE | 2019-10-18 19:37 | NUR ---
RECEIVED PATIENT SITTING ON THE BED AOX3 DRESSING TO RIGHT 2ND AND 3RD DIGIT INTACT, C/O PAIN .ON GOING NURSE GIVEN THE PAIN MEDICATION . CALL LIGHT WITHIN REACH. BED IN THE LOWEST POSITION.
[2019-10-19] MEDS: VANCOMYCIN 1GM/NS 250 ML 250 ML IV SCH (01:00)
[2019-10-19] MEDS: HYDROMORPHONE 1MG/1ML INJ IV PRN ×3 (02:05→07:48)
[2019-10-19] MEDS: ACETAMINOPHEN/CODEINE 300MG - 30MG TAB PO PRN ×2 (03:56→09:00)
[2019-10-19 04:00] VITALS: BP 121/61
[2019-10-19] MEDS ORDERED: ONDANSETRON HCL INJ 2MG/ML 2ML 2 MG/ML VIAL IV PRN (05:15)
[2019-10-19] MEDS: PIPER-TAZ 3.375 GM 50 ML IV SCH (05:35)
--- NOTE | 2019-10-19 06:35 | NUR ---
PT C/O PAIN ALL NIGHT AND GIVEN ORDERED PAIN MEDICATIONS CALL ED DR JOHNNIE SPRING AND DR TAPIA .REGINA GIVEN DILAUDID IMG EXTRA DOSE AND GIVEN .BEDSIDE REPORT GIVEN TO THE ONCOMING NURSE
[2019-10-19] MEDS ORDERED: HYDROMORPHONE 1MG/1ML INJ IV ONE (07:25)
[2019-10-19] MEDS: INSULIN LISPRO 100 UNIT/1 ML 3ML VIAL SQ SCH (07:30)
[2019-10-19 07:49] VITALS: BP 135/84
[2019-10-19] MEDS: DESVENLAFAXINE SUCCINATE 50 MG TAB.SR.24H PO SCH (08:11)
[2019-10-19] MEDS: ISOSORBIDE MONONITRATE 30 MG TAB CR PO SCH (08:11)
[2019-10-19] MEDS: METFORMIN HCL 500 MG TAB PO SCH (08:11)
[2019-10-19] MEDS: NIFEDIPINE CR 30 MG TAB PO SCH (08:11)
[2019-10-19 08:16] VITALS: BP 135/84
[2019-10-19] MEDS ORDERED: ASPIRIN 81 MG CHEW TAB PO SCH (09:00)
[2019-10-19] MEDS ORDERED: RIVAROXABAN 20 MG TABLET PO SCH (09:00)
[2019-10-19] MEDS ORDERED: TIZANIDINE HCL 4 MG TAB PO SCH (10:00)
--- NOTE | 2019-10-19 10:21 | Discharge Summary ---
ADMIT DIAGNOSES: 1. Ischemic necrosis (gangrene) of right index and right long finger. 2. Thromboangiitis obliterans/Buerger disease. 3. Peripheral artery disease. 4. Type 2 diabetes mellitus with neuropathy. 5. Hypertensive heart disease. 6. Tobacco abuse. DISCHARGE DIAGNOSES: 1. Status post amputation of right index and right long fingers at the proximal interphalangeal joints. 2. Thromboangiitis obliterans/Buerger disease. 3. Type 2 diabetes mellitus with neuropathy. 4. Peripheral artery disease. 5. Hypertensive heart disease. 6. Tobacco abuse. HOSPITAL COURSE: This is a 49-year-old white man, who was initially admitted to [facility] with admission diagnosis of gangrenous ischemic necrosis of the right index and long fingers. This man has a known history of thromboangiitis obliterans/Buerger disease. He also history of peripheral artery disease. During this hospitalization, the patient was seen by a Hand Surgeon, namely Dr. Clive Hubbard, who performed amputation of the right index and right long fingers both at the proximal interphalangeal joints. The patient tolerated the procedure well. The patient was kept overnight for pain control. Unfortunately, intravenous hydromorphone was not successful in controlling his pain, but acetaminophen with codeine coupled with tizanidine was somewhat helpful for pain control. CONDITION ON DISCHARGE: Stable. DISCHARGE MEDICATIONS: 1. Tylenol No. 4 one p.o. t.i.d. p.r.n. pain, two weeks supply, no refills. 2. Tizanidine 4 mg one p.o. t.i.d. p.r.n. spasms, two weeks supply, no refills. 3. Keflex 500 mg p.o. b.i.d. for 10 days. 4. Isosorbide mononitrate 30 mg daily. 5. Nifedipine XL 30 mg b.i.d. 6. Xarelto 15 mg daily. 7. Aspirin 81 mg daily. 8. Pristiq 50 mg daily. 9. Lorazepam 1 mg at bedtime p.r.n. insomnia/anxiety. 10. Metformin 1000 mg b.i.d. FOLLOWUP INSTRUCTIONS: The patient was instructed to follow up with Dr. Clive Hubbard in 1 week and with his primary care physician namely myself, Dr. Maurice Orahood, in 2 weeks. Tobacco cessation was highly recommended to the patient. MD DUSTY Alva/CLOVIS /[id number] cc: Clive Hubbard MD
[2019-10-19] MEDS ORDERED: ACETAMINOPHEN/CODEINE 300MG - 30MG TAB PO ONE (10:40)
[2019-10-19] MEDS ORDERED: Tylenol # 4 PO (10:43)
[2019-10-19] MEDS ORDERED: ZANAFLEX4 MG PO (10:44)
[2019-10-19] MEDS ORDERED: KEFLEX500 MG PO (10:45)
--- NOTE | 2019-10-19 10:53 | NUR ---
RECEIVED DC ORDER FROM DR. TAPIA. PATIENT IS IN STABLE CONDITION. IV LINE TO LEFT AC DCD WITH TIP INTACT, PRESSURE APPLIED TO SITE, NO BLEEDING NOTED. DISCHARGE TEACHING PROVIDED, HE VERBALIZED UNDERSTANDING. DISCHARGE FOLDER ON HAND WITH PRESCRIPTIONS. ALL PERSONAL ITEMS ON HAND. PATIENT ACCOMPANIED TO PRIVATE AUTO BY STAFF. REFUSED WHEELCHAIR.
== END 2019-10-19 10:56 | disposition home or self-care (01) | DRG 256 ==
LOC: ER 19:44 → UNDOADMOB 23:05 → ERHOLD 23:05 → OR 10-18 07:10 → PACU V 10-18 09:59 → UNDOADMOB 10-18 09:59 → PACU V 10-18 10:05 → MED/SURG3 10-18 10:45
PROVIDERS: ADMIT Internal Medicine; ATTEND Internal Medicine
PROC: 0X6Q0Z2 Detachment at Right Middle Finger, Mid, Open Approach (ICD-10-PCS; 2019-10-18)
PROC: 0X6N0Z2 Detachment at Right Index Finger, Mid, Open Approach (ICD-10-PCS; principal; 2019-10-18 08:00)
DX: I73.1 Thromboangiitis obliterans [Buerger's disease] (principal); E11.52 Type 2 diabetes mellitus with diabetic peripheral angiopathy with gangrene; F17.210 Nicotine dependence, cigarettes, uncomplicated; I11.9 Hypertensive heart disease without heart failure; F32.9 Major depressive disorder, single episode, unspecified; G47.33 Obstructive sleep apnea (adult) (pediatric); E11.40 Type 2 diabetes mellitus with diabetic neuropathy, unspecified; E66.9 Obesity, unspecified; Z68.36 Body mass index [BMI] 36.0-36.9, adult; Z79.84 Long term (current) use of oral hypoglycemic drugs; Z79.01 Long term (current) use of anticoagulants; Z79.82 Long term (current) use of aspirin
CPT/HCPCS: 36415; 80053; 82948; 85025; 85610; 85730; 87040; 88304; 88305; 88311; 93005; 99284; J1170; J2001; J2250; J2270; J2405; J2543; J3010; J3370; J7030; J7050

== ENCOUNTER 2020-01-23 15:09 | Inpatient (IN) | payer OTHER, SELFPAY ==
[~2020-01-23] VITALS: Ht 185.4 cm; Wt 125.6 kg
[~2020-01-23 15:09] MED LIST changes: +KEFLEX500 MG PO; +Tylenol # 4 PO; +ZANAFLEX4 MG PO
[2020-01-23] MEDS ORDERED: ONDANSETRON HCL INJ 2MG/ML 2ML 2 MG/ML VIAL IV STA (16:34)
[2020-01-23] MEDS ORDERED: SODIUM CHLORIDE 0.9% 1000ML 1,000 ML IV STA (16:34)
[2020-01-23] MEDS ORDERED: HYDROMORPHONE 1MG/1ML INJ IV STA (16:34)
[2020-01-23] MEDS ORDERED: ONDANSETRON HCL INJ 2MG/ML 2ML 2 MG/ML VIAL IV PRN (17:00)
--- NOTE | 2020-01-23 17:23 | Emergency Department Note ---
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, was seen at [facility] ER yesterday and was told to follow up with his PCP and Ortho, c/o severe pain in stumps of right 1st, 2nd, 3rd fingers with foul-smelling discharge Historian: Patient Arrival Mode: Car Medical Charge Entry Specialist Required: No Onset (how long ago): week(s) (1.5 weeks, worse in past 2 days) Location: fingertips Quality: pain Radiation: non-radiation Severity: severe Onset quality: gradual Timing of current episode: constant Progression: worsening Chronicity: chronic Context: recent illness Relieving factors: none Exacerbating factors: none Associated symptoms: denies other symptoms Treatments prior to arrival: none Past Medical/Family History Physician Review I have reviewed the patient's past medical and family history. Any updates have been documented here. Past Medical History Recent Fever: No Clinical Suspicion of Infectio: No New/Unexplained Change in Ment: No Past Medical History: Hypertension, Diabetes Other Medical History: PANCREATITIS BUERGER'S DISEASE Past Surgical History: None Other Surgery: I&D TO LT 2ND DIGIT. 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 PARTIAL AMPUTATION OF 2ND AND 3RD DIGITS Social History Smoking Cessation: Former smoker Counseling Performed: No Alcohol Use: None Any Illegal Drug Use: No TB Exposure/Symptoms: No Physically hurt or threatened: No Family History Family history of heart diseas: No Other Last Tetanus: 2011 Review of Systems Review of Systems Constitutional: no symptoms EENTM: no symptoms Cardiovascular: no symptoms Respiratory: no symptoms Gastrointestinal: no symptoms Genitourinary: no symptoms Musculoskeletal: as per HPI Neurological: no symptoms Psychological: no symptoms Endocrine: no symptoms Hematological/Lymphatic: no symptoms Review of other systems All other systems reviewed and negative. Physical Exam Related Data Allergies: Coded Allergies: No Known Allergies (Unverified , 09/01/14) Triage Vital Signs Vital Signs Date Time Temp Pulse Resp B/P (MAP) Pulse Ox O2 Delivery O2 Flow Rate FiO2 01/23/20 16:22 97.4 82 16 152/97 98 Physical Exam CONSTITUTIONAL Constitutional: well-developed, well-nourished HENT HENT: normocephalic, atraumatic, oropharynx clear/moist, nose normal HENT L/R: left ext ear normal, right ext ear normal EYES Eyes: PERRL, conjunctivae normal NECK Neck: ROM normal PULMONARY Pulmonary: effort normal, breath sounds normal CARDIOVASCULAR Cardiovascular: regular rhythm, heart sounds normal, capillary refill normal, normal rate GASTROINTESTINAL Abdominal: soft, nontender, bowel sounds normal GENITOURINARY Genitourinary: exam deferred SKIN Skin: warm, erythema, other (multiple tips of fingers especially right 2nd & 3rd tips of amputation sites with necrosis with surrounding swelling/erythema, foul-smelling discharge and exquisitely tender to touch) MUSCULOSKELETAL Musculoskeletal: ROM normal NEUROLOGICAL Neurological: alert, oriented x 3, no gross motor or sensory deficits PSYCHOLOGICAL Psychological: mood/affect normal, judgement normal Results Laboratory Lab results reviewed: Yes Imaging Imaging results reviewed: Yes Diagnostics Tests Diagnostic test(s) reviewed: Yes Critical Care Time Subsequent provider I assumed direction of critical care for this patient from another provider of my specialty. Assessment & Plan Assessment & Plan Final Impression: (1) Thromboangiitis obliterans (Buerger's disease) (2) Gangrene of finger (3) Cellulitis (4) Osteomyelitis Assessment & Plan Admit - I spoke with Dr Hubbard who will do further amputation tomorrow, spoke with Dr Chowdary for admission and he agrees with plan Depart Disposition: ADMITTED Last Vital Signs Date Time Temp Pulse Resp B/P (MAP) Pulse Ox O2 Delivery O2 Flow Rate FiO2 01/23/20 16:22 97.4 82 16 152/97 98 Home Meds Reported Medications Cephalexin Monohydrate (KEFLEX) 500 Mg Capsule, 500 MG PO TID for 10 Days 10/19/19 Tizanidine Hcl (ZANAFLEX) 4 Mg Tablet, 4 MG PO TID PRN for Muscle Spasms 10/19/19 [Tylenol # 4] No Conflict Check, 1 TAB PO TID PRN for Pain 10/19/19 Desvenlafaxine Succinate (PRISTIQ ER) 50 Mg Tab.er.24h, 50 MG PO DAILY, #30 TAB 09/11/19 Isosorbide Mononitrate (ISOSORBIDE MONONITRATE ER) 30 Mg Tab.er.24h, 30 MG PO DAILY, #30 TAB 09/11/19 Nifedipine (PROCARDIA XL) 30 Mg Tab.er.24, 30 MG PO BID, #60 TAB 09/11/19 Metformin Hcl (METFORMIN HCL) 500 Mg Tablet, 1000 MG PO BID, #60 TAB 08/27/19 Lorazepam* (ATIVAN*) 0.5 Mg Tablet, 1 MG PO HS PRN for INSOMNIA, #60 TAB 08/27/19 Rivaroxaban (XARELTO) 20 Mg Tablet, 15 PO DAILY 08/27/19 Aspirin (ASPIRIN) 81 Mg Tab.chew, PO DAILY 05/24/19 Medications in the ED Hydromorphone HCl 1 mg ONCE STAT IV ; Start 01/23/20 at 16:34; Stop 01/23/20 at 16:35 Ondansetron HCl 4 mg ONCE STAT IV ; Start 01/23/20 at 16:34; Stop 01/23/20 at 16:35 Sodium Chloride 1,000 ml @ 0 mls/hr Q0M STAT IV ; Start 01/23/20 at 16:34; Stop 01/23/20 at 16:35 Piperacillin Sod/ Tazobactam Sod 50 ml @ 50 mls/hr Q6H IV ; Start 01/23/20 at 17:00; Stop 01/30/20 at 16:59 Vancomycin HCl 250 ml @ 167 mls/hr ONCE ONCE IV ; Start 01/23/20 at 17:45; Stop 01/23/20 at 19:14 Hydromorphone HCl 1 mg Q3H PRN IV SEVERE PAIN (7-10); Start 01/23/20 at 17:00; Stop 01/30/20 at 16:59 Ondansetron HCl 4 mg Q4H PRN IV NAUSEA AND VOMITING; Start 01/23/20 at 17:00; Stop 02/22/20 at 16:59 Sodium Chloride 1,000 ml @ 125 mls/hr Q8H IV ; Start 01/23/20 at 17:00; Stop 02/22/20 at 16:59 VLADIMIR SAEZ MD January 23, 2020 17:23
[2020-01-23] MEDS ORDERED: VANCOMYCIN 1GM/NS 250 ML 250 ML IV ONE (17:45)
--- NOTE | 2020-01-23 18:04 | Diagnostic Imaging Report ---
Exam: Right Hand Series. History: Buerger's disease, necrotic fingertips, right hand pain, evaluate for osteomyelitis. Comparison: Right hand, 3 views 08/13/2019 Findings: 3 views of the right hand. There is mildly decreased bone mineralization with juxta articular osteopenia. Interval amputation of the second and third fingers at the level of the proximal interphalangeal joint. Cortical surfaces are indistinct, with likely small erosions in the distal aspect of the proximal phalanx of second greater than third fingers. Other bony structures are intact. Negative for acute, displaced fracture or dislocation. No abnormal soft tissue calcification or mass. Soft tissue concavities in the distal aspect of the second and third finger at the amputation margin may represent ulcerations.Moderate soft tissue swelling in the second and third finger. Impression: 1. Findings in the second and third finger suspicious for osteomyelitis. Signed by: Dr. Silvestre Gold M.D. on 01/23/2020 6:01 PM
[2020-01-23] MEDS: PIPER-TAZ 3.375 GM 50 ML IV SCH (18:06)
[2020-01-23 18:18] LABS: BASOPHILS # (AUTO) 0.2 (0.0-0.1); BASOPHILS % 1.1 % (0.0-1.0); EOSINOPHILS # (AUTO) 2.2 (0.0-0.4); EOSINOPHILS % 13.2 % (0.0-6.0); HEMOGLOBIN 13.9 g/dL (14.0-18.0); LYMPHOCYTES # (AUTO) 2.9 (1.0-3.2); LYMPHOCYTES % 16.9 % (18.0-39.1); MEAN CORPUSCULAR HEMOGLOBIN 29.4 pg (28-32); MEAN CORPUSCULAR HGB CONC 32.3 g/dL (31-35); MEAN CORPUSCULAR VOLUME 90.9 fL (81-99); MONOCYTES # (AUTO) 1.3 (0.2-0.8); MONOCYTES % 7.4 % (4.4-11.3); NEUTROPHILS # (AUTO) 10.3 (2.1-6.9); NEUTROPHILS % 60.8 % (38.7-80.0); PLATELET COUNT 292 x10e3/uL (140-360); RED BLOOD COUNT 4.73 x10e6/uL (4.3-5.7); RED CELL DISTRIBUTION WIDTH 13.3 % (11.7-14.4)
[2020-01-23 18:26] LABS: INR 0.93; PARTIAL THROMBOPLASTIN TIME 28.1 seconds (23.8-35.5)
[2020-01-23 18:36] LABS: ALANINE AMINOTRANSFERASE 25 IU/L (0-55); ALBUMIN 3.3 g/dL (3.5-5.0); ALBUMIN/GLOBULIN RATIO 0.8 (0.8-2.0); ALKALINE PHOSPHATASE 105 IU/L (40-150); ANION GAP 13.9 mmol/L (8-16); BLOOD UREA NITROGEN 15 mg/dL (7-26); BUN/CREATININE RATIO 16 (6-25); CALCIUM 9.2 mg/dL (8.4-10.2); CARBON DIOXIDE 25 mmol/L (22-29); CHLORIDE 103 mmol/L (98-107); CREATINE KINASE 89 IU/L (30-200); CREATININE, SERUM 0.95 mg/dL (0.72-1.25); EST GLOMERULAR FILTRATION RATE > 60 ML/MIN (60-); GLUCOSE 98 mg/dL (74-118); POTASSIUM 3.9 mmol/L (3.5-5.1); SODIUM 138 mmol/L (136-145)
[2020-01-23] MEDS: SODIUM CHLORIDE 0.9% 1000ML 1,000 ML IV SCH (20:56)
[2020-01-23] MEDS: HYDROMORPHONE 1MG/1ML INJ IV PRN (20:56)
[2020-01-23 21:28] LABS: ANISOCYTOSIS MODERATE; EOSINOPHILS % (MANUAL) 15 % (0-7); LYMPHOCYTES % (MANUAL) 19 % (19-48); MONOCYTES % (MANUAL) 5 % (3.4-9.0); NEUTROPHILS % (MANUAL) 56 % (40-74); PLATELET ESTIMATE ADEQUATE; PLATELET MORPHOLOGY COMMENT NORMAL; POIKILOCYTOSIS SLIGHT; RBC MORPHOLOGY COMMENT ABNORMAL
--- NOTE | 2020-01-23 22:19 | NUR ---
reviewed all home medications with dr tavarez, this nurse informed dr tavarez that patient stated, " I take metformin only once a day even though dr tavarez tells me to take it twice a day". Dr tavarez informed, this nurse recieved orders to change metformin orders to daily. All home medications and telephone orders repeated for clarification.
[2020-01-23] MEDS ORDERED: LORAZEPAM 0.5 MG TAB PO PRN (22:30)
[2020-01-23] MEDS: TIZANIDINE HCL 4 MG TAB PO PRN (23:11)
--- NOTE | 2020-01-24 01:59 | NUR ---
patient advised several times to stay still while doing blood pressure readings. patient constantly moves when blood pressure is taken and says, " I cannot control what i do".
[2020-01-24] MEDS: HYDROMORPHONE 1MG/1ML INJ IV PRN ×5 (02:37→21:56)
[2020-01-24] MEDS: PIPER-TAZ 3.375 GM 50 ML IV SCH ×4 (02:37→17:02)
[2020-01-24] MEDS: SODIUM CHLORIDE 0.9% 1000ML 1,000 ML IV SCH ×4 (02:37→21:56)
[2020-01-24 05:12] LABS: BASOPHILS # (AUTO) 0.2 (0.0-0.1); EOSINOPHILS # (AUTO) 2.1 (0.0-0.4); EOSINOPHILS % 14.5 % (0.0-6.0); HEMATOCRIT 40.2 % (38.2-49.6); HEMOGLOBIN 12.9 g/dL (14.0-18.0); LYMPHOCYTES % 20.7 % (18.0-39.1); MEAN CORPUSCULAR HEMOGLOBIN 29.9 pg (28-32); MEAN CORPUSCULAR HGB CONC 32.1 g/dL (31-35); MEAN CORPUSCULAR VOLUME 93.3 fL (81-99); MONOCYTES # (AUTO) 1.1 (0.2-0.8); MONOCYTES % 7.7 % (4.4-11.3); NEUTROPHILS % 55.8 % (38.7-80.0); PLATELET COUNT 240 x10e3/uL (140-360); RED BLOOD COUNT 4.31 x10e6/uL (4.3-5.7); RED CELL DISTRIBUTION WIDTH 13.2 % (11.7-14.4)
[2020-01-24 05:37] LABS: CREATINE KINASE MB 1.8 ng/mL (0-5.0)
[2020-01-24 06:06] LABS: ANION GAP 11.9 mmol/L (8-16); BLOOD UREA NITROGEN 12 mg/dL (7-26); BUN/CREATININE RATIO 15 (6-25); CALCIUM 8.6 mg/dL (8.4-10.2); CARBON DIOXIDE 23 mmol/L (22-29); CHLORIDE 106 mmol/L (98-107); CREATININE, SERUM 0.82 mg/dL (0.72-1.25); EST GLOMERULAR FILTRATION RATE > 60 ML/MIN (60-); GLUCOSE 92 mg/dL (74-118); POTASSIUM 3.9 mmol/L (3.5-5.1); SODIUM 137 mmol/L (136-145)
--- NOTE | 2020-01-24 07:00 | NUR ---
report given to rich catalan
[2020-01-24 07:36] LABS: EOSINOPHILS % (MANUAL) 20 % (0-7); LYMPHOCYTES % (MANUAL) 26 % (19-48); MONOCYTES % (MANUAL) 3 % (3.4-9.0); NEUTROPHILS % (MANUAL) 51 % (40-74); PLATELET ESTIMATE ADEQUATE; PLATELET MORPHOLOGY COMMENT NORMAL; RBC MORPHOLOGY COMMENT NORMAL
[2020-01-24] MEDS: METFORMIN HCL 500 MG TAB PO SCH (08:00)
--- NOTE | 2020-01-24 08:17 | NUR ---
Patient states that he wants pain medication. Educated patient that his pain medication is every three hour per his MAR and that he received pain medication at 0604. Patient states that he will get his brother to bring him pain medication. Educated patient that, that is not allowed. Explained to patient that once it is time to give him pain medication per his orders that I would bring him medication. Patient verblaized understading.
--- NOTE | 2020-01-24 08:22 | NUR ---
OR team here to get patient to take to surgery.
[2020-01-24] MEDS ORDERED: BUPIVACAINE HCL 0.5% INJ 30 ML VIAL INJ ONE (09:00)
[2020-01-24] MEDS ORDERED: MUPIROCIN 2% OINT 22 GM TUBE ONE (09:00)
[2020-01-24] MEDS: NIFEDIPINE CR 30 MG TAB PO SCH ×2 (09:00→16:10)
--- NOTE | 2020-01-24 10:03 | History and Physical ---
CHIEF COMPLAINT: "My right hand hurts horribly." HISTORY OF PRESENT ILLNESS: This is a 49-year-old white man, who unfortunately suffers from Buerger disease/thromboangiitis obliterans. The patient continues to have chronic wounds on his right hand. He also still smokes tobacco. The patient states the wound has been worsening over the last week. He also states the wounds have become malodorous. In the emergency room, the patient was found to have white blood cell count of 16,900 with 56% segmenters. Hemoglobin is 13.9 g percent. The patient's blood chemistries are unremarkable. The patient underwent x-ray of the right hand in the emergency room that did reveal findings suspicious for osteomyelitis in the second and third fingers. The patient was admitted for further evaluation and treatment. REVIEW OF SYSTEMS: GENERAL: The patient's weight has been stable. Denies any fevers or chills. HEENT: No headaches. No visual changes. CARDIOVASCULAR/RESPIRATORY: No chest pain. No short of breath. GI: No nausea, vomiting, diarrhea, or constipation. : No dysuria, hematuria, or incontinence. NEUROMUSCULAR: Complains of intense pain in his right hand wounds. ALLERGIES: NO KNOWN DRUG ALLERGIES. HOME MEDICATIONS: 1. Aspirin 81 mg daily. 2. Xarelto 15 mg daily. 3. Keflex 500 mg t.i.d. 4. Pristiq 50 mg daily. 5. Isosorbide mononitrate 30 mg daily. 6. Lorazepam 1 mg bedtime p.r.n. insomnia/anxiety. 7. Metformin 1000 mg daily. 8. Nifedipine XL 30 mg b.i.d. 9. Tizanidine 4 mg t.i.d. p.r.n., back spasms. 10. Tylenol No.4 one pill t.i.d. p.r.n., intense pain. FAMILY HISTORY: Parents have diabetes mellitus. Sister of pancreatic cancer. PAST MEDICAL HISTORY: 1. Buerger disease/thromboangiitis obliterans. 2. Peripheral artery disease (left ulnar arterial occlusion). 3. Type 2 diabetes with neuropathy. 4. Hypertensive heart disease. 5. Obesity. 6. Tobacco abuse. 7. Anxiety disorder. 8. Depression. 9. Obstructive sleep apnea. PAST SURGICAL HISTORY: Multiple amputations of his fingers on the bilateral hands due to recurrent bouts of gangrenous infection secondary to his Buerger disease. SOCIAL HISTORY: Remains single, lives alone. 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 The patient is a tobacco smoker. The patient denies any current alcohol or illicit drug use. The patient has a remote history of opiate pill abuse. PHYSICAL EXAMINATION: GENERAL: He is awake, alert. He is fully oriented. He is in obvious distress. VITAL SIGNS: Height 6 feet 1 inch, weight 280 pounds, BMI 36, blood pressure is 156/110, pulse is 100, respiratory rate 18, oxygen saturation 98% on room air, and temperature 98.2. INTEGUMENT: Skin is warm and dry. No pallor, jaundice, diaphoresis. HEENT: Anicteric sclerae. Moist mucous membranes. NECK: Supple. CARDIOVASCULAR: Tachycardic rate, regular rhythm. The patient has S4 gallop. LUNGS: No rales, no rhonchi or wheezes. ABDOMEN: Obese. EXTREMITIES: The patient has evidence of multiple amputations bilateral hands. The patient has malodorous necrotic gangrenous wounds on the distal tip of his previously amputated right second and right third finger. He also has gangrenous wound on the distal aspect of his right thumb. NEUROLOGIC: Intact. No gross deficits. DIAGNOSIS: 1. Right second and third finger gangrenous wounds with osteomyelitis. 2. Buerger disease/thromboangiitis obliterans. 3. Tobacco abuse. 4. Type 2 diabetes mellitus. 5. Peripheral disease. PLAN: 1. Highly recommend tobacco cessation. 2. Consult hand surgeon. 3. The patient will go to the operating room soon for further finger amputations and right thumb wound debridement. 4. Continue intravenous antibiotics. 5. Pain control. I spent 45 minutes in the care of this patient. MD DUSTY Alva/CLOVIS /[id number] GRACE
--- NOTE | 2020-01-24 13:27 | NUR ---
RECEIVED PATIENT FROM PACU. PATIENT A/O X3, EVEN RESPIRATIONS ON RA. LUNG SOUNDS CLEAR. RIGHT HAND DRESSING C/D/I. TELEMETRY # 25 SR. LEFT HAND IV WITH IVF AT 125 CC/HR. PAIN 8/10 TO RIGHT HAND. PATIENT AMBULATES INDEPENDENTLY. VS STABLE. CALL LIGHT IN REACH WILL CONTINUE TO MONITOR PATIENT.
[2020-01-24 14:15] VITALS: BP 147/88
[2020-01-24 14:19] VITALS: BP 146/101
[2020-01-24 15:03] LABS: CREATINE KINASE 63 IU/L (30-200)
[2020-01-24 16:00] VITALS: BP 160/104
[2020-01-24] MEDS: ISOSORBIDE MONONITRATE 30 MG TAB CR PO SCH (16:10)
--- NOTE | 2020-01-24 17:28 | Operative Report ---
DATE OF PROCEDURE: 01/24/2020 SURGEON: Clive Hubbard MD PREOPERATIVE DIAGNOSES: 1. Buerger's disease. 2. Gangrene right thumb, index, and long fingers. PROCEDURES: 1. Debridement of right thumb down to distal phalanx. 2. Amputation of right index finger, MP level. 3. Amputation of right long finger, at the MP level. ANESTHESIA: General. HISTORY: The patient is a 49-year-old [id number] male with a diagnosis of Buerger's disease. The patient has been unsuccessful in complying with his smoking cessation program and continues to use nicotine products. He underwent amputations of the right index and long fingers at the PIP joint level, however, these have subsequently become gangrenous and the patient presented to the emergency room last evening. He also has a new onset gangrenous wound of the radial aspect of the right thumb distal phalanx. The risks, benefits, and alternatives were discussed with the patient. He is prepared to undergo the procedure as outlined. PROCEDURE IN DETAIL: The patient was marked preoperatively in the holding area. He was brought to the operating theater and after the induction of adequate general anesthesia, he was prepped and draped in a supine position. A time-out was performed. The right upper extremity was exsanguinated and the tourniquet was inflated to a pressure of 250 mmHg. The procedure was begun on the right thumb first. The area of demarcation between devitalized and healthy tissue was marked out. The incision was made in the interval between the devitalized and normal tissue and was carried down all way through the subcutaneous tissue. Venous tributaries were controlled with bipolar cautery. The necrosis extends directly onto the distal phalanx and there was a portion of the cortical surface, which appears to be infected, consistent with osteomyelitis. For this reason, the distal phalanx was partially debrided using a rongeur. The wound was then irrigated and then left open. A racquet type incisions were marked out around the MP joints of both the index and the long fingers. The incisions were made through the skin and subcutaneous tissues on the dorsal aspect first, venous tributaries were controlled with bipolar cautery. The incisions were then carried through the extensor tendon mechanism until the dorsal cortices of the proximal phalanx is identified. At this point, the hand was turned over and the incisions on the volar aspect of the MP joints were made through the skin and subcutaneous tissues. Both the radial and ulnar neurovascular bundles were identified, and dissected and skeletonized. The digital arteries were then clamped and then transected, they were ligated with 4-0 Vicryl sutures. The digital nerves were transected and then allowed to retract into the substance of the palm. At this point, the flexor tendons were transected and carried all the way through to the volar surface of the proximal phalanx. At this point, the collateral ligaments on the base of the proximal phalanx was released and the entire proximal phalanx was then removed, and sent for permanent pathologic examination. Both the index and the long finger wounds were irrigated with bacteriostatic saline and then closed with 4-0 nylon in interrupted horizontal mattress fashion. A Marcaine field blocks were performed at all three operative sites. The tourniquet was deflated. The remaining fingers pinked up nicely and the wounds were noted to be hemostatic. Bactroban ointment, Xeroform gauze, and a sterile dressing were applied. The patient was then returned to recovery room in satisfactory condition. MD LORRAINE Lanier/CLOVIS /[id number]
[2020-01-24] MEDS: DESVENLAFAXINE SUCCINATE 50 MG TAB.SR.24H PO SCH (17:43)
[2020-01-24] MEDS: TIZANIDINE HCL 4 MG TAB PO PRN (17:43)
[2020-01-24] MEDS ORDERED: ONDANSETRON HCL INJ 2MG/ML 2ML 2 MG/ML VIAL ONE (18:26)
[2020-01-24] MEDS ORDERED: PROPOFOL IV EMULSION 10 MG/ML 20 ML VIAL ONE (18:26)
[2020-01-24] MEDS ORDERED: SEVOFLURANE INHAL SOLN 250 ML PEN BTL ONE (18:26)
[2020-01-24] MEDS ORDERED: DEXAMETHASONE SOD PHOS INJ 4 MG/ML VIAL ONE (18:26)
[2020-01-24] MEDS ORDERED: LIDOCAINE HCL 2% LOCAL INJ 5 ML SDV VIAL INJ ONE (18:26)
[2020-01-24] MEDS ORDERED: MORPHINE SULFATE INJ 10 MG/ML ONE (18:43)
[2020-01-24] MEDS ORDERED: FENTANYL CITRATE/PF 100MCG/2 ML INJ ONE (18:43)
[2020-01-24] MEDS ORDERED: MIDAZOLAM HCL 2 MG/2 ML VIAL ONE (18:43)
[2020-01-24 20:00] VITALS: BP 129/84
[2020-01-24 21:18] VITALS: BP 160/104
[2020-01-25] VITALS: BP 130/84
--- NOTE | 2020-01-25 01:17 | NUR ---
Anabel has called this nurse for pain medication x2. On each entry to room pt is in room asleep and does not awaken to calling his name. Will cont to mon
[2020-01-25] MEDS: HYDROMORPHONE 1MG/1ML INJ IV PRN ×3 (01:30→07:38)
[2020-01-25] MEDS: TIZANIDINE HCL 4 MG TAB PO PRN (03:00)
[2020-01-25 04:00] VITALS: BP 115/72
[2020-01-25 06:04] LABS: BASOPHILS # (AUTO) 0.1 (0.0-0.1); BASOPHILS % 0.4 % (0.0-1.0); EOSINOPHILS # (AUTO) 0.5 (0.0-0.4); EOSINOPHILS % 3.5 % (0.0-6.0); HEMATOCRIT 31.6 % (38.2-49.6); HEMOGLOBIN 10.1 g/dL (14.0-18.0); LYMPHOCYTES # (AUTO) 2.1 (1.0-3.2); LYMPHOCYTES % 15.1 % (18.0-39.1); MEAN CORPUSCULAR HEMOGLOBIN 30.2 pg (28-32); MEAN CORPUSCULAR VOLUME 94.6 fL (81-99); MONOCYTES # (AUTO) 1.1 (0.2-0.8); NEUTROPHILS % 72.4 % (38.7-80.0); PLATELET COUNT 209 x10e3/uL (140-360); RED BLOOD COUNT 3.34 x10e6/uL (4.3-5.7); RED CELL DISTRIBUTION WIDTH 13.1 % (11.7-14.4)
[2020-01-25] MEDS: PIPER-TAZ 3.375 GM 50 ML IV SCH ×3 (06:12→11:39)
[2020-01-25 06:23] LABS: ALANINE AMINOTRANSFERASE 17 IU/L (0-55); ALBUMIN 2.3 g/dL (3.5-5.0); ALBUMIN/GLOBULIN RATIO 0.8 (0.8-2.0); ALKALINE PHOSPHATASE 70 IU/L (40-150); ANION GAP 9.3 mmol/L (8-16); BLOOD UREA NITROGEN 11 mg/dL (7-26); BUN/CREATININE RATIO 16 (6-25); CALCIUM 7.1 mg/dL (8.4-10.2); CARBON DIOXIDE 22 mmol/L (22-29); CHLORIDE 111 mmol/L (98-107); CREATININE, SERUM 0.68 mg/dL (0.72-1.25); EST GLOMERULAR FILTRATION RATE > 60 ML/MIN (60-); GLUCOSE 139 mg/dL (74-118); POTASSIUM 3.3 mmol/L (3.5-5.1); SODIUM 139 mmol/L (136-145)
--- NOTE | 2020-01-25 07:00 | NUR ---
RECEIVED PATIENT RESTING IN BED NO S/S OF DISTRESS. BED LOW, WHEELS LOCKED, SIDE RAILS X2. CALL LIGHT IN REACH WILL CONTINUE TO MONITOR PATIENT.
[2020-01-25] MEDS: METFORMIN HCL 500 MG TAB PO SCH (07:40)
[2020-01-25] MEDS: NIFEDIPINE CR 30 MG TAB PO SCH (07:56)
[2020-01-25] MEDS: DESVENLAFAXINE SUCCINATE 50 MG TAB.SR.24H PO SCH (07:56)
[2020-01-25] MEDS: ISOSORBIDE MONONITRATE 30 MG TAB CR PO SCH (07:56)
[2020-01-25] MEDS: SODIUM CHLORIDE 0.9% 1000ML 1,000 ML IV SCH (07:57)
[2020-01-25 08:26] VITALS: BP 120/76
[2020-01-25] MEDS ORDERED: HYDROCODONE/APAP 10MG-325MG TAB PO PRN (08:45)
[2020-01-25] MEDS ORDERED: POTASSIUM CHLORIDE 10MEQ EA PO ONE ×2 (08:55→10:30)
[2020-01-25 09:09] VITALS: BP 120/76
--- NOTE | 2020-01-25 09:15 | NUR ---
DR. LYONOOD AWARE OF PATIENT HAVING 10 RUNS OF VTACH AND NOW BACK TO SINUS RHYTHM. NO NEW ORDERS IMPLEMENTED. WILL CONTINUE TO MONITOR PATIENT.
[2020-01-25] MEDS ORDERED: ACETAMINOPHEN/CODEINE 300MG - 30MG TAB PO PRN (09:45)
[2020-01-25] MEDS ORDERED: ONDANSETRON HCL 4 MG ORAL DISINTEGRATING TAB PO PRN (10:30)
--- NOTE | 2020-01-25 10:57 | Discharge Summary ---
ADMIT DIAGNOSES: 1. Right 2nd and 3rd finger gangrenous wound with osteomyelitis. 2. Buerger disease/thromboangiitis obliterans. 3. Tobacco abuse. 4. Type 2 diabetes mellitus. 5. Hypertensive heart disease. DISCHARGE DIAGNOSES: 1. Status post right index and right long finger amputations, both at the metacarpophalangeal level. 2. Status post debridement of right thumb down to the distal phalanx. 3. Buerger disease/thromboangiitis obliterans. 4. Tobacco abuse. 5. Type 2 diabetes mellitus. 6. Peripheral artery disease. 7. Hypertensive heart disease. HOSPITAL COURSE: This is a 49-year-old white man, who has known history of Buerger disease/thromboangiitis programs. Moreover, he was heavy tobacco smoker. The patient is admitted to [facility] emergency room with right 2nd and 3rd finger gangrenous wounds with osteomyelitis. He was also found a gangrenous wound on the distal aspect of his right thumb. During this hospitalization, he was seen by his hand surgeon, Dr. Hubbard, who took the patient to his operating room and performed successful amputation of the right index and right long fingers both at the metacarpophalangeal levels. Dr. Hubbard also performed debridement of the right thumb down to the distal phalanx. The patient tolerated the surgery well. However, on day of discharge the patient was found to have potassium 3.3, thus oral supplementation was ordered. He did have a 10-beat of what appears to be ventricular tachycardia on the security monitor. The patient was completely asymptomatic during this episode. The patient's vitals including his oxygen level remained stable during this time and afterwards. Decision was made to watch the patient for a few hours and as previous stated replete his potassium level. Also, his magnesium was found to be 1.6, thus it also was replaced. CONDITION ON DISCHARGE: The patient's condition on discharge was stable. DISCHARGE MEDICATIONS: 1. Tylenol #4 one p.o. t.i.d. p.r.n. intense pain, 21 pills prescribed, no refills. 2. Ciprofloxacin 500 mg b.i.d. for 7 days. 3. Nifedipine 30 mg b.i.d. 4. Isosorbide mononitrate 30 mg daily. 5. Pristiq 50 mg daily. 6. Metformin 1000 mg daily. 7. Tizanidine 4 mg every 6 hours p.r.n. muscle spasms. 8. Lorazepam 1 mg bedtime p.r.n. insomnia/anxiety. 9. Xarelto 20 mg daily. 10. Aspirin 81 mg daily. FOLLOWUP INSTRUCTIONS: The patient instructed to follow up with Dr. Clive Hubbard in 1 week and also with me his primary care physician in 1 week. MD ABY AlvaO/MISTYL /[id number] cc: Clive Hubbard MD MTDD
[2020-01-25] MEDS ORDERED: MAGNESIUM SULFATE 2GM/50ML 50 ML IV ONE (11:15)
[2020-01-25 12:00] VITALS: BP 130/79
[2020-01-25] MEDS ORDERED: CIPRO500 MG PO (13:35)
--- NOTE | 2020-01-25 14:00 | NUR ---
removed patients iv. catheter tip intact and pressure dressing applied.
--- NOTE | 2020-01-25 14:07 | NUR ---
PATIENT DISCHARGED FROM FACILITY. PATIENT GATHERED ALL PERSONAL BELONGINGS, DISCHARGE INSTRUCTIONS, AND FOLLOW UP INFORMATION. LEFT UNIT IN WHEELCHAIR AND WENT HOME VIA PRIVATE AUTO. NO S/S OF DISTRESS LEAVING FACILITY. PATIENT STATING HE IS DRIVING HIMSELF HOME DUE TO NO ONE BEING ABLE TO GET HIM. EXPLAINED THAT IF PATIENT FEELS UNSAFE WHILE DRIVING HOME TO [employer]ER AND CALL FOR HELP. PATIENT UNDERSTOOD SAFETY TEACHING. PATIENT ALERT AND ORIENTED X3 ON DISCHARGE.
== END 2020-01-25 16:31 | disposition home or self-care (01) | DRG 256 ==
LOC: ER 15:09 → ERHOLD 16:42 → UNDOADMIN 16:42 → OR 01-24 09:00 → PACU V 01-24 12:53 → MED/SURG 01-24 13:30
PROVIDERS: ADMIT Internal Medicine; ATTEND Internal Medicine
PROC: 0X6S0Z0 Detachment at Right Ring Finger, Complete, Open Approach (ICD-10-PCS; 2020-01-24)
PROC: 0RBW0ZZ Excision of Right Finger Phalangeal Joint, Open Approach (ICD-10-PCS; 2020-01-24)
PROC: 0X6Q0Z0 Detachment at Right Middle Finger, Complete, Open Approach (ICD-10-PCS; principal; 2020-01-24 09:00)
DX: I73.1 Thromboangiitis obliterans [Buerger's disease] (principal); M86.9 Osteomyelitis, unspecified; M86.8X4 Other osteomyelitis, hand; F17.200 Nicotine dependence, unspecified, uncomplicated; I11.9 Hypertensive heart disease without heart failure; I70.208 Unspecified atherosclerosis of native arteries of extremities, other extremity; Z79.4 Long term (current) use of insulin; E11.40 Type 2 diabetes mellitus with diabetic neuropathy, unspecified; G47.33 Obstructive sleep apnea (adult) (pediatric); E66.9 Obesity, unspecified; Z68.36 Body mass index [BMI] 36.0-36.9, adult
CPT/HCPCS: 36415; 80048; 80053; 82550; 82553; 82948; 83735; 84484; 85025; 85610; 85730; 87040; 87635; 88304; 88311; 96361; 99285; J1100; J1170; J2001; J2250; J2270; J2405; J2543; J3010; J3370; J3475; J7030

== ENCOUNTER 2020-02-21 05:11 | Emergency (ER) | payer SELFPAY ==
[~2020-02-21] VITALS: Ht 185.4 cm; Wt 125.6 kg
[~2020-02-21 05:11] MED LIST changes: +CIPRO500 MG PO
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
== END 2020-02-21 05:25 | disposition left against medical advice (07) ==
LOC: ER 05:11
DX: R20.2 Paresthesia of skin (principal)

== ENCOUNTER 2020-03-01 17:27 | Emergency (ER) | payer SELFPAY ==
[~2020-03-01] VITALS: Ht 185.4 cm; Wt 125.6 kg
[2020-03-01] MEDS ORDERED: SODIUM CHLORIDE 0.9% 1000ML 1,000 ML IV STA (17:36)
--- NOTE | 2020-03-01 17:39 | Emergency Department Note ---
History of Present Illnes History of Present Illness Chief Complaint: COVID PUI History of Present Illness This is a 50 year old male returns to the ED for non-specific generalized pain. Patient with complaint of CP and abd pain . Seen earlier in the week for evaluation of worms extruding from digits. . Onset (how long ago): hour(s) Radiation: Reports extremity, Reports abdomen Severity: moderate Onset quality: gradual Duration (how long): hour(s) Timing of current episode: constant Progression: worsening Chronicity: new Context: Reports recent surgery, Reports non-compliance w/ medications Relieving factors: none Exacerbating factors: none Associated symptoms: Reports chest pain, Reports diaphoresis, Reports weakness Treatments prior to arrival: none Past Medical/Family History Physician Review I have reviewed the patient's past medical and family history. Any updates have been documented here. Past Medical History Recent Fever: No Clinical Suspicion of Infectio: No New/Unexplained Change in Ment: No Past Medical History: Hypertension, Diabetes Other Medical History: INDER, BERGERS Past Surgical History: None Other Surgery: I&D TO LT 2ND DIGIT. 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 PARTIAL AMPUTATION OF 2ND AND 3RD DIGITS Social History Smoking Cessation: Current some day smoker Other Last Tetanus: 2011 Review of Systems Review of Systems Constitutional: Reports diaphoresis EENTM: Reports no symptoms Cardiovascular: Reports chest pain Respiratory: Reports no symptoms Gastrointestinal: Reports abdominal pain Genitourinary: Reports no symptoms Musculoskeletal: Reports no symptoms Integumentary: Reports no symptoms Neurological: Reports no symptoms Psychological: Reports no symptoms Endocrine: Reports no symptoms Hematological/Lymphatic: Reports no symptoms Physical Exam Related Data Allergies: Coded Allergies: No Known Allergies (Unverified , 09/01/14) Physical Exam CONSTITUTIONAL Constitutional: Present diaphoretic, Present distressed HENT EYES NECK PULMONARY CARDIOVASCULAR GASTROINTESTINAL Abdominal: Present soft, Present tender GENITOURINARY SKIN MUSCULOSKELETAL Musculoskeletal: Present other NEUROLOGICAL PSYCHOLOGICAL Results Laboratory Lab results reviewed: Yes Laboratory comments WBC : 14.8 CMP : wnl UDS : multiple (+) Imaging Imaging results reviewed: Yes Impressions [place] [id number] Patient Name: YOLA LYNN MR #: [id number] : 1970 Age/Sex: 50/M Req #: [id number] Adm Physician: Ordered by: KEESHA REYNOLDS DO Report #: [id number] Location: ER Room/Bed: Procedure: [id number] CT/CT CHEST WO Exam Date: 03/01/20 Exam Time: 1830 REPORT STATUS: Signed EXAMINATION: CT of the chest, abdomen and pelvis without contrast. TECHNIQUE: Spiral CT images of the chest, abdomen and pelvis were performed from the lung apices to the lesser trochanters. No intravenous contrast was given due to elevated creatinine.. Coronal and sagittal reformatted images were obtained COMPARISON: None. CLINICAL HISTORY:Chills, epigastric pain, nausea, vomiting, fever DISCUSSION: ABSENCE OF INTRAVENOUS CONTRAST DECREASES SENSITIVITY FOR DETECTION OF FOCAL LESIONS AND VASCULAR PATHOLOGY. CHEST: LINES/TUBES: None. LUNGS AND AIRWAYS: Linear opacities in the superior segment of the right lower lobe likely reflecting subsegmental atelectasis or scarring. Questionable 3-4 mm nodule in the posterolateral right lower lobe (series 3, image 29). 2 mm pulmonary nodule in the lingula (series 3, image 32). No other nodules or opacities. No masses or consolidation. PLEURA: The pleural spaces are clear. HEART AND MEDIASTINUM: The thyroid gland is normal. The heart and pericardium are within normal limits. LYMPH NODES: No mediastinal, hilar or axillary adenopathy. BONES AND SOFT TISSUES: No bony destructive lesions. No soft tissue abnormalities. ABDOMEN/PELVIS: HEPATOBILIARY: No focal hepatic lesions. No intra or extrahepatic biliary ductal dilation. GALLBLADDER: No radio-opaque stones or sludge. No wall thickening. SPLEEN: No splenomegaly. PANCREAS: No focal masses or ductal dilatation. ADRENALS: No adrenal nodules. KIDNEYS/URETERS: No renal or ureteral calculi, hydronephrosis or obstruction. No renal contour abnormalities or significant perinephric stranding. PELVIC ORGANS/BLADDER: Bladder and prostate are unremarkable. PERITONEUM/RETROPERITONEUM: No free air or fluid. LYMPH NODES: No intra-abdominal,retroperitoneal, pelvic or inguinal lymphadenopathy. VESSELS: Unremarkable for noncontrast exam. GI TRACT: No bowel dilation or evidence of obstruction. No pericolonic inflammatory changes. Appendix is identified and normal in caliber. Hyperdense material in the appendiceal lumen likely represents retained contrast from prior exam. Stomach is unremarkable. BONES AND SOFT TISSUES: No aggressive lytic or suspicious focal sclerotic lesion. Multilevel degenerative disks in the lower thoracic and lumbosacral spine, worse at L5-S1 with moderate intervertebral disc space narrowing and osteophytosis. Facet hypertrophy L5-S1. Small fat-containing left inguinal hernia. IMPRESSION: 1. Exam limited by lack of intravenous contrast. No acute abnormalities in the chest, abdomen or pelvis, despite the limitations. 2. Two nonspecific pulmonary nodules. If patient is low risk, no further follow-up is indicated per the Fleischner Society 2017 guidelines. Signed by: Dr. Loki Gold M.D. on 03/01/2020 7:40 PM Dictated By: LOKI GOLD MD 39 Transcribed By: ROBERT on 03/01/201939 COPY TO: KEESHA REYNOLDS DO~ Assessment & Plan Medical Decision Making MDM 50 yom with BC, CMP, and CTS of abd/pelvis ordered to evaluate for abdominal abscess, appendicitis, biliary pathology, pancreatitis, perforated viscus. Diff DX: sepsis, ACS, abdominal pathology, illicit drug use. CT chest and abdomen ordered . Labs reviewed Assessment & Plan Final Impression: (1) Polysubstance abuse (2) Formication (3) Intractable pain Depart Disposition: HOME, SELF-CARE Last Vital Signs Date Time Temp Pulse Resp B/P (MAP) Pulse Ox O2 Delivery O2 Flow Rate FiO2 03/01/20 19:19 82 20 99 03/01/20 18:09 98.1 Home Meds Reported Medications Tizanidine Hcl (ZANAFLEX) 4 Mg Tablet, 4 MG PO TID PRN for Muscle Spasms 10/19/19 [Tylenol # 4] No Conflict Check, 1 TAB PO TID PRN for Pain 10/19/19 Nifedipine (PROCARDIA XL) 30 Mg Tab.er.24, 30 MG PO BID, #60 TAB 09/11/19 Lorazepam* (ATIVAN*) 0.5 Mg Tablet, 0.5 MG PO BID PRN for INSOMNIA, #60 TAB 08/27/19 Discontinued Reported Medications Ciprofloxacin Hcl (CIPRO) 500 Mg Tablet, 500 MG PO BID, #30 TAB 01/25/20 Desvenlafaxine Succinate (PRISTIQ ER) 50 Mg Tab.er.24h, 50 MG PO DAILY, #30 TAB 09/11/19 Isosorbide Mononitrate (ISOSORBIDE MONONITRATE ER) 30 Mg Tab.er.24h, 30 MG PO DAILY, #30 TAB 09/11/19 Metformin Hcl (METFORMIN HCL) 500 Mg Tablet, 1000 MG PO DAILY, #60 TAB 08/27/19 Rivaroxaban (XARELTO) 20 Mg Tablet, 15 PO DAILY 08/27/19 Aspirin (ASPIRIN) 81 Mg Tab.chew, PO DAILY 05/24/19 KEESHA REYNOLDS DO Mar 01, 2020 17:39
[2020-03-01 18:18] LABS: BASOPHILS # (AUTO) 0.1 (0.0-0.1); BASOPHILS % 0.8 % (0.0-1.0); EOSINOPHILS # (AUTO) 1.3 (0.0-0.4); EOSINOPHILS % 8.6 % (0.0-6.0); HEMATOCRIT 42.2 % (38.2-49.6); HEMOGLOBIN 13.6 g/dL (14.0-18.0); LYMPHOCYTES # (AUTO) 3.1 (1.0-3.2); LYMPHOCYTES % 20.6 % (18.0-39.1); MEAN CORPUSCULAR HEMOGLOBIN 29.1 pg (28-32); MEAN CORPUSCULAR HGB CONC 32.2 g/dL (31-35); MEAN CORPUSCULAR VOLUME 90.4 fL (81-99); MONOCYTES % 6.8 % (4.4-11.3); NEUTROPHILS # (AUTO) 9.3 (2.1-6.9); NEUTROPHILS % 62.7 % (38.7-80.0); PLATELET COUNT 275 x10e3/uL (140-360); RED BLOOD COUNT 4.67 x10e6/uL (4.3-5.7); RED CELL DISTRIBUTION WIDTH 13.5 % (11.7-14.4)
[2020-03-01] MEDS ORDERED: ONDANSETRON HCL INJ 2MG/ML 2ML 2 MG/ML VIAL IV NR ×2 (18:30)
[2020-03-01] MEDS ORDERED: HYDROMORPHONE 1MG/1ML INJ IV NR ×2 (18:30)
[2020-03-01 18:33] LABS: ALANINE AMINOTRANSFERASE 16 IU/L (0-55); ALBUMIN 3.2 g/dL (3.5-5.0); ALBUMIN/GLOBULIN RATIO 0.8 (0.8-2.0); ALKALINE PHOSPHATASE 104 IU/L (40-150); ANION GAP 10.9 mmol/L (8-16); BLOOD UREA NITROGEN 13 mg/dL (7-26); BUN/CREATININE RATIO 13 (6-25); CALCIUM 9.4 mg/dL (8.4-10.2); CARBON DIOXIDE 27 mmol/L (22-29); CHLORIDE 103 mmol/L (98-107); CREATININE, SERUM 0.98 mg/dL (0.72-1.25); EST GLOMERULAR FILTRATION RATE > 60 ML/MIN (60-); GLUCOSE 116 mg/dL (74-118); POTASSIUM 3.9 mmol/L (3.5-5.1); SODIUM 137 mmol/L (136-145)
[2020-03-01] MEDS ORDERED: HYDROMORPHONE 1MG/1ML INJ ONE (18:34)
--- NOTE | 2020-03-01 19:44 | Diagnostic Imaging Report ---
EXAMINATION: CT of the chest, abdomen and pelvis without contrast. TECHNIQUE: Spiral CT images of the chest, abdomen and pelvis were performed from the lung apices to the lesser trochanters. No intravenous contrast was given due to elevated creatinine.. Coronal and sagittal reformatted images were obtained COMPARISON: None. CLINICAL HISTORY:Chills, epigastric pain, nausea, vomiting, fever DISCUSSION: ABSENCE OF INTRAVENOUS CONTRAST DECREASES SENSITIVITY FOR DETECTION OF FOCAL LESIONS AND VASCULAR PATHOLOGY. CHEST: LINES/TUBES: None. LUNGS AND AIRWAYS: Linear opacities in the superior segment of the right lower lobe likely reflecting subsegmental atelectasis or scarring. Questionable 3-4 mm nodule in the posterolateral right lower lobe (series 3, image 29). 2 mm pulmonary nodule in the lingula (series 3, image 32). No other nodules or opacities. No masses or consolidation. PLEURA: The pleural spaces are clear. HEART AND MEDIASTINUM: The thyroid gland is normal. The heart and pericardium are within normal limits. LYMPH NODES: No mediastinal, hilar or axillary adenopathy. BONES AND SOFT TISSUES: No bony destructive lesions. No soft tissue abnormalities. ABDOMEN/PELVIS: HEPATOBILIARY: No focal hepatic lesions. No intra or extrahepatic biliary ductal dilation. GALLBLADDER: No radio-opaque stones or sludge. No wall thickening. SPLEEN: No splenomegaly. PANCREAS: No focal masses or ductal dilatation. ADRENALS: No adrenal nodules. KIDNEYS/URETERS: No renal or ureteral calculi, hydronephrosis or obstruction. No renal contour abnormalities or significant perinephric stranding. PELVIC ORGANS/BLADDER: Bladder and prostate are unremarkable. PERITONEUM/RETROPERITONEUM: No free air or fluid. LYMPH NODES: No intra-abdominal,retroperitoneal, pelvic or inguinal lymphadenopathy. VESSELS: Unremarkable for noncontrast exam. GI TRACT: No bowel dilation or evidence of obstruction. No pericolonic inflammatory changes. Appendix is identified and normal in caliber. Hyperdense material in the appendiceal lumen likely represents retained contrast from prior exam. Stomach is unremarkable. BONES AND SOFT TISSUES: No aggressive lytic or suspicious focal sclerotic lesion. Multilevel degenerative disks in the lower thoracic and lumbosacral spine, worse at L5-S1 with moderate intervertebral disc space narrowing and osteophytosis. Facet hypertrophy L5-S1. Small fat-containing left inguinal hernia. IMPRESSION: 1. Exam limited by lack of intravenous contrast. No acute abnormalities in the chest, abdomen or pelvis, despite the limitations. 2. Two nonspecific pulmonary nodules. If patient is low risk, no further follow-up is indicated per the Fleischner Society 2017 guidelines. Signed by: Dr. Silvestre Gold M.D. on 03/01/2020 7:40 PM
[2020-03-01 21:24] LABS: CLARITY,URINE CLEAR (CLEAR); COLOR,URINE YELLOW (YELLOW)
[2020-03-01 21:25] LABS: LEUKOCYTE ESTERASE ,URINE NEGATIVE (NEGATIVE)
[2020-03-01 21:26] LABS: BACTERIA,URINE RARE /HPF; BILIRUBIN,URINE NEGATIVE (NEGATIVE); EPITHELIAL CELLS,URINE FEW /LPF; KETONES,URINE NEGATIVE (NEGATIVE); NITRITE,URINE NEGATIVE (NEGATIVE); PROTEIN,URINE DIPSTICK NEGATIVE (NEGATIVE); RBC,URINE 0-5 /HPF (0-5); URINE UROBILINOGEN 0.2 mg/dL (0.2 - 1); WBC,URINE (MAN) 0-5 /HPF (0-5)
[2020-03-01 21:35] LABS: AMPHETAMINES SCREEN,URINE POSITIVE (NEGATIVE); PHENCYCLIDINE SCREEN,URINE NEGATIVE (NEGATIVE)
[2020-03-01 21:36] LABS: BENZODIAZEPINES SCREEN,URINE NEGATIVE (NEGATIVE)
== END 2020-03-01 20:30 | disposition home or self-care (01) ==
LOC: ER 17:48
DX: R10.84 Generalized abdominal pain (principal); R20.2 Paresthesia of skin; F15.10 Other stimulant abuse, uncomplicated; F11.10 Opioid abuse, uncomplicated
CPT/HCPCS: 36415; 71250; 74176; 80053; 80307; 81001; 83605; 83690; 85025; 87040; 99284; J1170; J2405; J7030